=== PATIENT | female | born 1945 | race Caucasian/White ===

== ENCOUNTER 2017-04-03 12:55 | Inpatient (IN) | payer MEDICARE, BC ==
[2017-04-03] MEDS ORDERED: Albuterol/Ipratropium 3.0-0.5 MG/3 ML Neb Soln NEB ONE (13:36)
[2017-04-03] MEDS ORDERED: Sodium Chloride 0.9% 10 ML Syringe FLUSH PRN (13:37)
--- NOTE | 2017-04-03 14:58 | CR ---
Chest: Two views of the chest were obtained. Comparison: Previous chest x-ray of 01/05/16. Mild increased density is seen within the perihilar regions and within both lung bases. Findings most likely due to bronchitis as well as possible early right lower lobe pneumonia. Lungs otherwise are clear. Heart size appears within normal limits. Tortuous thoracic aorta is seen. Scoliosis is noted within the spine with minimal degenerative change also seen. Impression: 1. Possible bronchitis and early right lower lobe pneumonia. Please correlate if patient has infectious symptoms to correlate. Diagnostic code #3
--- NOTE | 2017-04-03 15:31 | EDM.PDOC ---
ED HPI GENERAL MEDICAL PROBLEM - General Chief Complaint: Respiratory Problem Stated Complaint: COPD,OXYGEN DOWN,FAST HEART RATE Time Seen by Provider: 04/03/17 13:30 Source of Information: Reports: Patient History Limitations: Reports: No Limitations - History of Present Illness INITIAL COMMENTS - FREE TEXT/NARRATIVE: The patient presents with a cough since Sunday, bodyaches, fever and chills. She has COPD and she has a pulse oximeter at home and her sats would go down in to the upper 70s. She has shortness of breath but no chest pain. She has no nausea, vomiting or abdominal pain. Onset: Gradual Duration: Day(s): (4) Severity: Moderate Improves with: Reports: None Worsens with: Reports: None Associated Symptoms: Reports: Cough, cough w sputum, Fever/Chills, Shortness of Breath, Other (Generalized body aches). Denies: Nausea/Vomiting Generalized Pain Score (Numeric/FACES): 7 - Related Data Allergies Allergy/AdvReac Type Severity Reaction Status Date / Time codeine Allergy Rash Verified 04/03/17 13:15 Penicillins Allergy Rash Verified 04/03/17 13:15 Home Meds: Home Meds Albuterol [IMW: Albuterol HFA] 1 inhalation PO Q4H PRN 12/12/15 [History] Albuterol/Ipratropium [DuoNeb 3.0-0.5 MG/3 ML] 3 ml NEB Q4HRRT PRN #100 neb [Rx] Hydrochlorothiazide 1 tab PO DAILY 12/12/15 [History] Levothyroxine 1 tab PO DAILY 12/12/15 [History] Fluticasone/Vilanterol [Breo Ellipta 200-25 Mcg INH] 1 each IH DAILY 01/05/16 [ History] Past Medical History HEENT History: Reports: Cataract, Retinal Detachment Cardiovascular History: Reports: Hypertension Respiratory History: Reports: COPD Endocrine/Metabolic History: Reports: Hypothyroidism - Past Surgical History HEENT Surgical History: Reports: Cataract Surgery GI Surgical History: Reports: Appendectomy, Cholecystectomy Social & Family History - Tobacco Use Smoking Status *Q: Former Smoker Used Tobacco, but Quit: No Month Tobacco Last Used: 7 years - Recreational Drug Use Recreational Drug Use: No - Living Situation & Occupation Living situation: Reports: Single Occupation: Employed ED ROS GENERAL - Review of Systems Review Of Systems: See Below Constitutional: Reports: Fever, Chills HEENT: Reports: No Symptoms Respiratory: Reports: Shortness of Breath, Cough Cardiovascular: Reports: No Symptoms Endocrine: Reports: No Symptoms GI/Abdominal: Reports: No Symptoms : Reports: No Symptoms Musculoskeletal: Reports: Muscle Pain ED EXAM, GENERAL - Physical Exam Exam: See Below Exam Limited By: No Limitations General Appearance: Alert, No Apparent Distress Ears: Normal External Exam Nose: Normal Inspection Head: Atraumatic, Normocephalic Neck: Normal Inspection Respiratory/Chest: No Respiratory Distress, Decreased Breath Sounds Cardiovascular: Regular Rate, Rhythm, No Edema, No Murmur GI/Abdominal: Soft, Non-Tender, No Organomegaly, No Mass Back Exam: Normal Inspection Extremities: Normal Inspection Neurological: Alert, Oriented, No Motor/Sensory Deficits Course - Vital Signs Last Recorded V/S: Last Vital Signs Temp 98.6 F 04/03/17 13:15 Pulse 81 04/03/17 14:14 Resp 18 04/03/17 13:15 BP 119/55 L 04/03/17 13:15 Pulse Ox 94 L 04/03/17 13:15 - Orders/Labs/Meds Orders: Active Orders 24 hr Category Date Time Status Cardiac Monitoring [RC] . DIRECTED Care 04/03/17 13:35 Active Oxygen Therapy [RC] PRN Care 04/03/17 13:36 Active Peripheral IV Care [RC] . DIRECTED Care 04/03/17 13:37 Active RT Aerosol Therapy [RC] ASDIRECTED Care 04/03/17 13:37 Active CULTURE BLOOD [BC] Stat Lab 04/03/17 15:33 Ordered CULTURE BLOOD [BC] Stat Lab 04/03/17 15:33 Ordered Levofloxacin/Dextrose 5%-Water [Levaquin in D5W 750 MG/ Med 04/03/17 15:33 Active 150 ML] 750 mg Premix Bag 1 bag IV ONETIME Sodium Chloride 0.9% [Saline Flush] Med 04/03/17 13:37 Active 10 ml FLUSH ASDIRECTED PRN Blood Culture x2 Reflex Set [OM.PC] Stat Oth 04/03/17 15:33 Ordered Peripheral IV Insertion Adult [OM.PC] Routine Oth 04/03/17 13:37 Ordered Medication Orders Levofloxacin/Dextrose 750 mg/ (Premix) 150 mls @ 100 mls/hr IV ONETIME ONE Stop: 04/03/17 17:02 Sodium Chloride (Saline Flush) 10 ml FLUSH ASDIRECTED PRN PRN Reason: Keep Vein Open Last Admin: 04/03/17 14:57 Dose: 10 ml Labs: Laboratory Tests 04/03/17 04/03/17 Range/Units 14:20 14:20 WBC 17.33 H (3.98-10.04) K/mm3 RBC 4.43 (3.98-5.22) M/mm3 Hgb 13.5 (11.2-15.7) gm/L Hct 41.0 (34.1-44.9) % MCV 92.6 (79.4-94.8) fl MCH 30.5 (25.6-32.2) pg MCHC 32.9 (32.2-35.5) g/dl RDW Std Deviation 49.4 H (36.4-46.3) fL Plt Count 293 (182-369) K/mm3 MPV 10.9 (9.4-12.3) fl Neut % (Auto) 82.9 H (34.0-71.1) % Lymph % (Auto) 7.6 L (19.3-51.7) % [place] % (Auto) 8.9 (4.7-12.5) % Eos % (Auto) 0.1 L (0.7-5.8) Baso % (Auto) 0.2 (0.1-1.2) % Neut # (Auto) 14.39 H (1.56-6.13) K/mm3 Lymph # (Auto) 1.31 (1.18-3.74) K/mm3 [place] # (Auto) 1.54 H (0.24-0.36) K/mm3 Eos # (Auto) 0.01 L (0.04-0.36) K/mm3 Baso # (Auto) 0.03 (0.01-0.08) K/mm3 Manual Slide Review Normal smear Sodium 134 L (136-145) mEq/L Potassium 3.7 (3.5-5.1) mEq/L Chloride 96 L (98-107) mEq/L Carbon Dioxide 29 (21-32) mEq/L Anion Gap 12.7 (5-15) BUN 14 (7-18) mg/dL Creatinine 0.9 (0.55-1.02) mg/dL Est Cr Clr Drug Dosing 48.11 mL/min Estimated GFR (MDRD) > 60 (>60) mL/min BUN/Creatinine Ratio 15.6 (14-18) Glucose 113 (80-115) mg/dL Calcium 9.0 (8.5-10.1) mg/dL Total Bilirubin 0.6 (0.2-1.0) mg/dL AST 19 (15-37) U/L ALT 20 (14-59) U/L Alkaline Phosphatase 80 (46-116) U/L Total Protein 7.2 (6.4-8.2) g/dl Albumin 3.0 L (3.4-5.0) g/dl Globulin 4.2 gm/dL Albumin/Globulin Ratio 0.7 L (1-2) Meds: Medications Generic Name Dose Route Start Last Admin Trade Name Freq PRN Reason Stop Dose Admin Levofloxacin/Dextrose 750 mg/ 150 mls @ 100 mls/hr 04/03/17 15:33 Premix IV 04/03/17 17:02 ONETIME ONE Sodium Chloride 10 ml 04/03/17 13:37 04/03/17 14:57 Saline Flush FLUSH 10 ml ASDIRECTED PRN Administration Keep Vein Open Discontinued Medications Generic Name Dose Route Start Last Admin Trade Name Freq PRN Reason Stop Dose Admin Albuterol/Ipratropium 3 ml 04/03/17 13:36 04/03/17 14:14 Duoneb 3.0-0.5 Mg/3 Ml NEB 04/03/17 13:37 3 ml ONETIME ONE Administration - Re-Assessments/Exams Free Text/Narrative Re-Assessment/Exam: 04/03/17 15:47 I ordered oxygen, duoneb, IV saline lock, CXR and labs. Her WBC was elevated at 17. Her CXR shows a right lower lobe pneumonia. I ordered blood cultures and levaquin 750mg IV. There were times where her oxygen saturations went into the high 80s. I feel she needs to be admitted. I called Dr Espino and he agreed to the admission. Departure - Departure Time of Disposition: 15:50 Disposition: Admitted As Inpatient 67 Condition: Fair Clinical Impression: Hypoxia COPD (chronic obstructive pulmonary disease) Qualifiers: COPD type: emphysema Emphysema type: unspecified Qualified Code(s): J43.9 - Emphysema, unspecified Pneumonia Qualifiers: Pneumonia type: due to unspecified organism Laterality: right Lung location: lower lobe of lung Qualified Code(s): J18.1 - Lobar pneumonia, unspecified organism - Discharge Information Referrals: Delfina May NP [Primary Care Provider] - Forms: ED Department Discharge - My Orders Last 24 Hours: My Active Orders 04/03/17 13:35 Cardiac Monitoring [RC] . DIRECTED 04/03/17 13:36 Oxygen Therapy [RC] PRN 04/03/17 13:37 Peripheral IV Care [RC] . DIRECTED RT Aerosol Therapy [RC] ASDIRECTED Sodium Chloride 0.9% [Saline Flush] 10 ml FLUSH ASDIRECTED PRN Peripheral IV Insertion Adult [OM.PC] Routine 04/03/17 15:33 CULTURE BLOOD [BC] Stat CULTURE BLOOD [BC] Stat Levofloxacin/Dextrose 5%-Water [Levaquin in D5W 750 MG/150 ML] 750 mg Premix Bag 1 bag IV ONETIME Blood Culture x2 Reflex Set [OM.PC] Stat - Assessment/Plan Last 24 Hours: My Active Orders 04/03/17 13:35 Cardiac Monitoring [RC] . DIRECTED 04/03/17 13:36 Oxygen Therapy [RC] PRN 04/03/17 13:37 Peripheral IV Care [RC] . DIRECTED RT Aerosol Therapy [RC] ASDIRECTED Sodium Chloride 0.9% [Saline Flush] 10 ml FLUSH ASDIRECTED PRN Peripheral IV Insertion Adult [OM.PC] Routine 04/03/17 15:33 CULTURE BLOOD [BC] Stat CULTURE BLOOD [BC] Stat Levofloxacin/Dextrose 5%-Water [Levaquin in D5W 750 MG/150 ML] 750 mg Premix Bag 1 bag IV ONETIME Blood Culture x2 Reflex Set [OM.PC] Stat
[2017-04-03] MEDS ORDERED: Levofloxacin/Dextrose 5%-Water 750 MG in Premix Bag 1 BAG IV ONE (15:33)
[2017-04-03] MEDS ORDERED: methylPREDNISolone Sodium Succinate 125 MG/2 ML SDV IVPUSH ONE (15:51)
[2017-04-03] MEDS ORDERED: Polyethylene Glycol 3350 Powder 17 GM Packet PO PRN (17:58)
[2017-04-03] MEDS ORDERED: Ondansetron 4 MG/2 ML SDV IV PRN (17:58)
[2017-04-03] MEDS ORDERED: Acetaminophen 325 MG Tab PO PRN (17:58)
[2017-04-03] MEDS ORDERED: Docusate Sodium 100 MG Cap PO PRN (17:58)
[2017-04-03] MEDS ORDERED: Albuterol/Ipratropium 3.0-0.5 MG/3 ML Neb Soln NEB PRN (17:58)
[2017-04-03] MEDS ORDERED: Ondansetron 4 MG Tab.DIS PO PRN (17:58)
--- NOTE | 2017-04-03 18:18 | PCM.HP ---
H&P History of Present Illness - General Date of Service: 04/03/17 Admit Problem/Dx: Admission Diagnosis/Problem Admission Diagnosis/Problem Pneumonia Source of Information: Patient History Limitations: Reports: No Limitations - History of Present Illness Initial Comments - Free Text/Narative: Patient is a 71-year-old woman with past medical history of chronic obstructive pulmonary disease, hypertension, hypothyroidism, who presented to the emergency room for evaluation of complaints of worsening cough, fever and shortness of breath of 3 days' duration. Patient states that she has had a cold since Sunday which got worse as she started coughing with productive sputum. Sputum was said to be clear and mucoid. She also complained of subjective fever and chills. She started feeling short of breath and she checked with her portable pulse oximeter and notes that that she was as low as 70%. For these problems she decided to come to the emergency room for further evaluation. At the emergency room, patient was noted to be in the low 80s but corrected with 2 L of oxygen via nasal cannula. Laboratory investigations collected at the emergency room revealed WBC of 17.3. Chest x-ray showed possible bronchitis versus early right lower lobe pneumonia. She received a dose of levofloxacin 750 mg IV as well as Solu-Medrol 125 mg 1 dose. She also received albuterol and ipratropium via nebulizer with good results. She will be admitted for IV antibiotic therapy and management of pneumonia. Generalized Pain Score (Numeric/FACES): 7 - Related Data Allergies/Adverse Reactions: Allergies Allergy/AdvReac Type Severity Reaction Status Date / Time codeine Allergy Rash Verified 04/03/17 13:15 Penicillins Allergy Rash Verified 04/03/17 13:15 Home Medications: Home Meds Albuterol [IMW: Albuterol HFA] 1 inhalation PO Q4H PRN 12/12/15 [History] Albuterol/Ipratropium [DuoNeb 3.0-0.5 MG/3 ML] 3 ml NEB Q4HRRT PRN #100 neb [Rx] Hydrochlorothiazide 1 tab PO DAILY 12/12/15 [History] Levothyroxine 1 tab PO DAILY 12/12/15 [History] Fluticasone/Vilanterol [Breo Ellipta 200-25 Mcg INH] 1 each IH DAILY 01/05/16 [ History] Past Medical History HEENT History: Reports: Cataract, Retinal Detachment Cardiovascular History: Reports: Hypertension Respiratory History: Reports: COPD Endocrine/Metabolic History: Reports: Hypothyroidism - Past Surgical History HEENT Surgical History: Reports: Cataract Surgery GI Surgical History: Reports: Appendectomy, Cholecystectomy Social & Family History - Tobacco Use Smoking Status *Q: Former Smoker Used Tobacco, but Quit: Yes Month Tobacco Last Used: 9 Second Hand Smoke Exposure: No - Caffeine Use Caffeine Use: Reports: Coffee, Soda Other Caffeine Use: 2 cups of coffee and 1 diet coke - Recreational Drug Use Recreational Drug Use: No - Living Situation & Occupation Living situation: Reports: Single Occupation: Employed H&P Review of Systems - Review of Systems: Review Of Systems: See Below General: Reports: Fever, Chills, Malaise HEENT: Reports: No Symptoms Pulmonary: Reports: Shortness of Breath, Pleuritic Chest Pain, Cough, Sputum Cardiovascular: Reports: No Symptoms Gastrointestinal: Reports: No Symptoms Genitourinary: Reports: No Symptoms Musculoskeletal: Reports: No Symptoms Skin: Reports: No Symptoms Psychiatric: Reports: No Symptoms Neurological: Reports: No Symptoms Hematologic/Lymphatic: Reports: No Symptoms Immunologic: Reports: No Symptoms Exam - Exam Exam: See Below - Vital Signs Vital Signs: Last Vital Signs Temp 97.0 F 04/03/17 17:05 Pulse 82 04/03/17 17:05 Resp 19 04/03/17 17:05 BP 125/62 04/03/17 17:05 Pulse Ox 98 04/03/17 17:05 Weight: 67.767 kg - Exam Quality Assessment: Supplemental Oxygen General: Alert, Oriented, Cooperative HEENT: PERRLA, Hearing Intact, Mucosa Moist & [place], Nares Patent, Normal Nasal Septum, Posterior Pharynx Clear, Conjunctiva Clear, EOMI, EACs Clear, TMs Clear Neck: Supple, Trachea Midline, 2 Lungs: Normal Respiratory Effort, Decreased Breath Sounds Cardiovascular: Regular Rate, Regular Rhythm GI/Abdominal Exam: Normal Bowel Sounds, Soft, Non-Tender, No Organomegaly, No Distention, No Abnormal Bruit, No Mass, Pelvis Stable (Female) Exam: Deferred Rectal (Female) Exam: Deferred Back Exam: Normal Inspection Extremities: Normal Inspection, Normal Range of Motion, Non-Tender, No Pedal Edema, Normal Capillary Refill Peripheral Pulses: 2+: Carotid (L), Carotid (R), Brachial (L), Brachial (R), Radial (L), Radial (R), Femoral (L), Femoral (R), Popliteal (L), Popliteal (R), Posterior Tibial (L), Posterior Tibial (R), Dorsalis Pedis (L), Dorsalis Pedis ( R) Skin: Warm, Dry, Intact Neurological: Cranial Nerves Intact, Reflexes Equal Bilateral Neuro Extensive - Mental Status: Alert, Oriented x3, Normal Mood/Affect, Normal Cognition Neuro Extensive - Motor, Sensory, Reflexes: CN II-XII Intact, Normal Gait, Normal Reflexes DTR: 2+: Bicep (L), Bicep (R), Tricep (L), Tricep (R), Patella (L), Patella (R) , Achilles (L), Achilles (R) Psychiatric: Alert, Normal Affect, Normal Mood - Patient Data Result Diagrams: 04/03/17 14:20 04/03/17 14:20 *Q Meaningful Use (ADM) - VTE *Q VTE Criteria *Q: - Stroke *Q Stroke Criteria *Q: - AMI *Q AMI Criteria *Q: - Problem List (1) Community acquired pneumonia SNOMED Code(s): 354208659 ICD Code: J18.9 - PNEUMONIA, UNSPECIFIED ORGANISM Status: Acute Priority : High Current Visit: Yes Qualifiers: Laterality: right Lung location: lower lobe of lung Qualified Code(s): J18.1 - Lobar pneumonia, unspecified organism (2) Acute and chronic respiratory failure with hypoxia SNOMED Code(s): 623676274 ICD Code: J96.21 - ACUTE AND CHRONIC RESPIRATORY FAILURE WITH HYPOXIA Status: Acute Priority: High Current Visit: Yes (3) COPD with acute exacerbation SNOMED Code(s): 191562192 ICD Code: J44.1 - CHRONIC OBSTRUCTIVE PULMONARY DISEASE W (ACUTE) EXACERBATION Status: Acute Priority: High Current Visit: No (4) Hypertension SNOMED Code(s): 01764220 ICD Code: I10 - ESSENTIAL (PRIMARY) HYPERTENSION Status: Chronic Priority : Low Current Visit: Yes (5) Hypothyroidism SNOMED Code(s): 85829068 ICD Code: E03.9 - HYPOTHYROIDISM, UNSPECIFIED Status: Chronic Priority: Low Current Visit: Yes Qualifiers: Hypothyroidism type: acquired Qualified Code(s): E03.9 - Hypothyroidism, unspecified Problem List Initiated/Reviewed/Updated: Yes Orders Last 24hrs: Active Orders 24 hr Category Date Time Status Patient Status [ADT] Routine ADT 04/03/17 17:07 Active Antiembolic Devices [RC] PER UNIT ROUTINE Care 04/03/17 18:02 Ordered Pneumonia Education [RC] Click to Edit Care 04/03/17 17:58 Ordered RT Incentive Spirometry [RC] ASDIRECTED Care 04/03/17 17:58 Ordered Up ad [place]ia [RC] ASDIRECTED Care 04/03/17 17:58 Ordered VTE/DVT Education [RC] PER UNIT ROUTINE Care 04/03/17 17:58 Ordered Vital Signs [RC] Q4H Care 04/03/17 17:58 Ordered 2 Gram Sodium Diet [DIET] Diet 04/03/17 Dinner Ordered BASIC METABOLIC PANEL,BMP [CHEM] AM Lab 04/04/17 05:11 Ordered CBC WITH AUTO DIFF [HEME] AM Lab 04/04/17 05:11 Ordered Acetaminophen [Tylenol] Med 04/03/17 17:58 Ordered 650 mg PO Q4H PRN Albuterol/Ipratropium [DuoNeb 3.0-0.5 MG/3 ML] Med 04/03/17 17:58 Ordered 3 ml NEB Q4H PRN Docusate Sodium [Colace] Med 04/03/17 17:58 Ordered 100 mg PO BID PRN Enoxaparin [Lovenox] Med 04/04/17 09:00 Ordered 40 mg SUBCUT DAILY Fluticasone/Vilanterol Med 04/04/17 09:00 Ordered 1 each IH DAILY Hydrochlorothiazide Med 04/04/17 09:00 Ordered 1 tab PO DAILY Levofloxacin/Dextrose 5%-Water [Levaquin in D5W 750 MG/ Med 04/04/17 15:30 Ordered 150 ML] 750 mg Premix Bag 1 bag IV Q24H Levothyroxine Med 04/04/17 09:00 Ordered 1 tab PO DAILY Ondansetron [Zofran ODT] Med 04/03/17 17:58 Ordered 4 mg PO Q6H PRN Ondansetron [Zofran] Med 04/03/17 17:58 Ordered 4 mg IV Q6H PRN Pharmacy to Dose [Pharmacy to Dose - InFluenza Vaccine] Med 04/04/17 11:00 Once 1 each IM ONETIME ONE Polyethylene Glycol 3350 [MiraLAX] Med 04/03/17 17:58 Ordered 17 gm PO DAILY PRN Temazepam [Restoril] Med 04/03/17 17:58 Ordered 7.5 mg PO BEDTIME PRN methylPREDNISolone Sod Succ [Solu-MEDROL] Med 04/04/17 06:00 Ordered 40 mg IVPUSH Q12H Antiembolic Hose [OM.PC] Per Unit Routine Oth 04/03/17 17:59 Ordered Blood Culture x2 Reflex Set [OM.PC] Stat Oth 04/03/17 17:58 Ordered Resuscitation Status Routine Resus Stat 04/03/17 17:58 Ordered Medication Orders Acetaminophen (Tylenol) 650 mg PO Q4H PRN PRN Reason: Pain (Mild 1-3)/fever Albuterol/Ipratropium (Duoneb 3.0-0.5 Mg/3 Ml) 3 ml NEB Q4H PRN PRN Reason: Shortness Of Breath/wheezing Docusate Sodium (Colace) 100 mg PO BID PRN PRN Reason: Constipation Enoxaparin Sodium (Lovenox) 40 mg SUBCUT DAILY [facility] Hydrochlorothiazide (Hydrochlorothiazide) mg PO DAILY [facility] Levofloxacin/Dextrose 750 mg/ (Premix) 150 mls @ 100 mls/hr IV Q24H [facility] Influenza Virus Vaccine (Pharmacy To Dose - Influenza Vaccine) 1 each IM ONETIME ONE Stop: 04/04/17 11:01 Levothyroxine Sodium (Levothyroxine) mcg PO DAILY [facility] Methylprednisolone Sodium Succinate (Solu-Medrol) 40 mg IVPUSH Q12H [facility] Non-Formulary Medication (Fluticasone/Vilanterol) 1 each IH DAILY [facility] Ondansetron HCl (Zofran Odt) 4 mg PO Q6H PRN PRN Reason: nausea, able to take PO Ondansetron HCl (Zofran) 4 mg IV Q6H PRN PRN Reason: Nausea/Vomiting Polyethylene Glycol (Miralax) 17 gm PO DAILY PRN PRN Reason: Constipation Sodium Chloride (Saline Flush) 10 ml FLUSH ASDIRECTED PRN PRN Reason: Keep Vein Open Last Admin: 04/03/17 14:57 Dose: 10 ml Temazepam (Restoril) 7.5 mg PO BEDTIME PRN PRN Reason: Sleep Assessment/Plan Comment:: Assessment: 1. Community-acquired pneumonia involving the right lower lobe of the lung. 2. Acute on chronic respiratory failure with hypoxia requiring oxygen supplementation therapy. 3. Acute exacerbation of chronic obstructive pulmonary disease. 4. Essential hypertension. 5. Chronic acquired hypothyroidism. Plan: 1. Admit to hospitalist service for IV antibiotic therapy as observation status. 2. IV antibiotic therapy with IV levofloxacin 750 mg every 24 hours. 3. IV Solu Medrol 40 mg twice daily. 4. Oxygen supplementation therapy to maintain oxygen saturation above 90%. 5. Bronchodilator therapy with albuterol and ipratropium via nebulizer every 4 hours as needed for shortness of breath and wheezing. 6. Continue all home medications as directed. 7. DVT prophylaxis with Lovenox. 8. CODE STATUS: Full code.
[2017-04-04] MEDS: Levothyroxine 125 MCG Tab **OWN MED PO SCH (06:13)
[2017-04-04] MEDS: methylPREDNISolone Sodium Succinate 40 MG/1 ML SDV IVPUSH SCH ×2 (06:13→20:39)
[2017-04-04] MEDS ORDERED: Magnesium Hydroxide 400 MG/5 ML Susp 30 ML Cup PO PRN (08:34)
[2017-04-04] MEDS: Enoxaparin 40 MG/0.4 ML Syringe SUBCUT SCH (08:56)
[2017-04-04] MEDS: guaiFENesin 600 MG Tab.ER PO SCH ×2 (08:56→20:39)
[2017-04-04] MEDS ORDERED: Non-Formulary Medication 1 Each (Fluticasone/Vilanterol 1 EACH) IH SCH (09:00)
[2017-04-04] MEDS ORDERED: FLU Vacc TS 2017-18 (65yr UP)/PF 180 MCG/0.5 ML Syringe IM ONE (11:00)
--- NOTE | 2017-04-04 11:01 | PCM.PN ---
- General Info Date of Service: 04/04/17 Admission Dx/Problem (Free Text): Admission Diagnosis/Problem Admission Diagnosis/Problem Pneumonia Sandra is seen this morning, resting comfortably. Supplemental oxygen continues to be weaned. Feeling better already. Afebrile overnight. VSS. Functional Status: Reports: Pain Controlled, Tolerating Diet, Ambulating, Urinating, Incentive Spirometry. Denies: New Symptoms - Review of Systems General: Reports: No Symptoms, Appetite (improved). Denies: Fever HEENT: Reports: No Symptoms Pulmonary: Reports: Shortness of Breath (improved), Cough, Sputum Cardiovascular: Reports: No Symptoms Gastrointestinal: Reports: No Symptoms Genitourinary: Reports: No Symptoms - Patient Data Vitals - Most Recent: Last Vital Signs Temp 98.6 F 04/04/17 08:24 Pulse 75 04/04/17 08:24 Resp 19 04/04/17 08:24 BP 127/110 H 04/04/17 08:24 Pulse Ox 92 L 04/04/17 09:00 Weight - Most Recent: 147 lb 11.2 oz I&O - Last 24 Hours: Intake & Output 04/03/17 04/04/17 04/04/17 22:59 06:59 14:59 Intake Total 240 1300 Balance 240 1300 Lab Results Last 24 Hours: Laboratory Results - last 24 hr 04/04/17 04/04/17 04/04/17 Range/Units 05:00 05:00 05:00 WBC 15.56 H (3.98-10.04) K/mm3 RBC 4.61 (3.98-5.22) M/mm3 Hgb 14.1 (11.2-15.7) gm/L Hct 42.7 (34.1-44.9) % MCV 92.6 (79.4-94.8) fl MCH 30.6 (25.6-32.2) pg MCHC 33.0 (32.2-35.5) g/dl RDW Std Deviation 48.4 H (36.4-46.3) fL Plt Count 300 (182-369) K/mm3 MPV 10.8 (9.4-12.3) fl Neut % (Auto) 92.6 H (34.0-71.1) % Lymph % (Auto) 4.0 L (19.3-51.7) % [place] % (Auto) 3.0 L (4.7-12.5) % Eos % (Auto) 0 L (0.7-5.8) Baso % (Auto) 0.1 (0.1-1.2) % Neut # (Auto) 14.42 H (1.56-6.13) K/mm3 Lymph # (Auto) 0.62 L (1.18-3.74) K/mm3 [place] # (Auto) 0.46 H (0.24-0.36) K/mm3 Eos # (Auto) 0.00 L (0.04-0.36) K/mm3 Baso # (Auto) 0.02 (0.01-0.08) K/mm3 Manual Slide Review Abnormal smear Sodium 137 (136-145) mEq/L Potassium 3.7 (3.5-5.1) mEq/L Chloride 100 (98-107) mEq/L Carbon Dioxide 27 (21-32) mEq/L Anion Gap 13.7 (5-15) BUN 11 (7-18) mg/dL Creatinine 0.5 L (0.55-1.02) mg/dL Est Cr Clr Drug Dosing 86.60 mL/min Estimated GFR (MDRD) > 60 (>60) mL/min BUN/Creatinine Ratio 22.0 H (14-18) Glucose 123 H (80-115) mg/dL Calcium 9.3 (8.5-10.1) mg/dL C-Reactive Protein 15.4 H* (<1.0) mg/dL Mycoplasma pneumon IgM Positive H (NEGATIVE) Carlito Results Last 24 Hours: Microbiology 04/03/17 21:58 Influenza Type A Antigen Screen - Final Nasal, Unspecified NEGATIVE INFLUENZA A VIRUS AG Influenza Type B Antigen Screen - Final NEGATIVE INFLUENZA B VIRUS AG Med Orders - Current: Current Medications Acetaminophen (Tylenol) 650 mg PO Q4H PRN PRN Reason: Pain (Mild 1-3)/fever Albuterol/Ipratropium (Duoneb 3.0-0.5 Mg/3 Ml) 3 ml NEB Q4H PRN PRN Reason: Shortness Of Breath/wheezing Docusate Sodium (Colace) 100 mg PO BID PRN PRN Reason: Constipation Enoxaparin Sodium (Lovenox) 40 mg SUBCUT DAILY [facility] Last Admin: 04/04/17 08:56 Dose: 40 mg Guaifenesin (Mucinex) 1,200 mg PO BID [facility] Last Admin: 04/04/17 08:56 Dose: 1,200 mg Hydrochlorothiazide (Hydrochlorothiazide) mg PO DAILY [facility] Levofloxacin/Dextrose 750 mg/ (Premix) 150 mls @ 100 mls/hr IV Q24H [facility] Azithromycin 500 mg/ Sodium (Chloride) 250 mls @ 250 mls/hr IV Q24H [facility] Influenza Virus Vaccine (Fluzone High-Dose ) 180 mcg IM ONETIME ONE Stop: 04/04/17 11:01 Levothyroxine Sodium (Levothyroxine) 125 mcg PO ACBRK [facility] Last Admin: 04/04/17 06:13 Dose: 125 mcg Magnesium Hydroxide (Milk Of Magnesia) 30 ml PO BID PRN PRN Reason: Constipation Methylprednisolone Sodium Succinate (Solu-Medrol) 40 mg IVPUSH Q12H [facility] Last Admin: 04/04/17 06:13 Dose: 40 mg Non-Formulary Medication (Fluticasone/Vilanterol) 1 each IH DAILY [facility] Non-Formulary Medication (Fluticasone Furoate [Arnuity Ellipta]) 1 puff PO DAILY [facility] Ondansetron HCl (Zofran Odt) 4 mg PO Q6H PRN PRN Reason: nausea, able to take PO Ondansetron HCl (Zofran) 4 mg IV Q6H PRN PRN Reason: Nausea/Vomiting Polyethylene Glycol (Miralax) 17 gm PO DAILY PRN PRN Reason: Constipation Saccharomyces Boulardii (Florastor) 250 mg PO BID [facility] Sodium Chloride (Saline Flush) 10 ml FLUSH ASDIRECTED PRN PRN Reason: Keep Vein Open Last Admin: 04/03/17 14:57 Dose: 10 ml Temazepam (Restoril) 7.5 mg PO BEDTIME PRN PRN Reason: Sleep Discontinued Medications Albuterol/Ipratropium (Duoneb 3.0-0.5 Mg/3 Ml) 3 ml NEB ONETIME ONE Stop: 04/03/17 13:37 Last Admin: 04/03/17 14:14 Dose: 3 ml Levofloxacin/Dextrose 750 mg/ (Premix) 150 mls @ 100 mls/hr IV ONETIME ONE Stop: 04/03/17 17:02 Last Admin: 04/03/17 16:22 Dose: 100 mls/hr Methylprednisolone Sodium Succinate (Solu-Medrol) 125 mg IVPUSH ONETIME ONE Stop: 04/03/17 15:52 Last Admin: 04/03/17 16:21 Dose: 125 mg - Exam Quality Assessment: Supplemental Oxygen, DVT Prophylaxis General: Alert, Oriented, Cooperative, No Acute Distress HEENT: Pupils Equal, EOMI, Mucous Membr. Moist/[place] Neck: Supple Lungs: Normal Respiratory Effort, Decreased Breath Sounds (bases bilat), Wheezing (expiratory) Cardiovascular: Regular Rate, Regular Rhythm GI/Abdominal Exam: Normal Bowel Sounds, Soft, Non-Tender (Female) Exam: Deferred Extremities: Normal Inspection, No Pedal Edema Peripheral Pulses: 1+: Dorsalis Pedis (L), Dorsalis Pedis (R) Skin: Warm, Dry Neurological: No New Focal Deficit Psy/Mental Status: Alert, Normal Affect, Normal Mood - Problem List & Annotations (1) Mycoplasma pneumonia SNOMED Code(s): 00194114 Code(s): J15.7 - PNEUMONIA DUE TO MYCOPLASMA PNEUMONIAE Status: Acute Priority: High Current Visit: Yes (2) Community acquired pneumonia SNOMED Code(s): 785612417 Code(s): J18.9 - PNEUMONIA, UNSPECIFIED ORGANISM Status: Acute Priority: High Current Visit: Yes Qualifiers: Laterality: right Lung location: lower lobe of lung Qualified Code(s): J18.1 - Lobar pneumonia, unspecified organism (3) COPD (chronic obstructive pulmonary disease) SNOMED Code(s): 33636758 Code(s): J44.9 - CHRONIC OBSTRUCTIVE PULMONARY DISEASE, UNSPECIFIED Status : Acute Priority: High Current Visit: Yes Qualifiers: COPD type: emphysema Emphysema type: unspecified Qualified Code(s): J43.9 - Emphysema, unspecified (4) Hypoxia SNOMED Code(s): 388606183 Code(s): R09.02 - HYPOXEMIA Status: Acute Priority: High Current Visit : Yes (5) Hypertension SNOMED Code(s): 59520665 Code(s): I10 - ESSENTIAL (PRIMARY) HYPERTENSION Status: Chronic Priority : Medium Current Visit: Yes Qualifiers: Hypertension type: essential hypertension Qualified Code(s): I10 - Essential (primary) hypertension (6) Hypothyroidism SNOMED Code(s): 47580024 Code(s): E03.9 - HYPOTHYROIDISM, UNSPECIFIED Status: Chronic Priority: Low Current Visit: Yes Qualifiers: Hypothyroidism type: acquired Qualified Code(s): E03.9 - Hypothyroidism, unspecified - Problem List Review Problem List Initiated/Reviewed/Updated: Yes - My Orders Last 24 Hours: My Active Orders 04/04/17 06:35 RT Flutter Valve Therapy [RT Acapella] [RESPCARE] Q2HWA 04/04/17 06:36 CULTURE SPUTUM + SMEAR [RM] Routine 04/04/17 06:37 STREP PNEUMONIAE ANTIGEN [MREF] Routine 04/04/17 09:00 Fluticasone Furoate [Arnuity Ellipta] 1 puff PO DAILY guaiFENesin [Mucinex] 1,200 mg PO BID 04/04/17 09:15 Azithromycin [Zithromax] 500 mg Sodium Chloride 0.9% [Normal Saline] 250 ml IV Q24H Saccharomyces Boulardii [Florastor] 250 mg PO BID 04/05/17 05:11 Chest 2V [CR] AM BASIC METABOLIC PANEL,BMP [CHEM] AM C-REACTIVE PROTEIN [CHEM] AM CBC WITH AUTO DIFF [HEME] AM - Plan Plan:: I/P: Community Acquired Pneumonia/Mycoplasma Pneumonia- -Levaquin IV -Mycoplasma positive this morning; add zithromax IV today -Continue with IVF for hydration -RT- aggressive pulmonary toilet; Neb tx/IS/FV -Mucinex BID -IV solumedrol -Supplemental oxygen to keep sats >90% -Influenza negative -Strep Pneumo Pending Hypoxia- 2/2 above Treat as above Chronic conditions: Cont home meds HTN Hypothyroid Other: Admit to inpatient for mycoplasma pneumonia diagnosis GI/DVT prophylax PT/OT CM/SW for DC planning assistance- plan 48 hours of IV abx. Patient is Full Code status
[2017-04-04] MEDS: Famotidine 20 MG Tab PO SCH ×2 (13:28→20:40)
[2017-04-04] MEDS: Saccharomyces Boulardii (Probiotic) 250 MG Cap PO SCH ×2 (13:28→20:38)
[2017-04-04] MEDS: Hydrochlorothiazide/Triamterene 25-37.5 MG Cap PO SCH (13:29)
[2017-04-04] MEDS: Azithromycin 500 MG in Sodium Chloride 0.9% 250 ML IV SCH (13:29)
[2017-04-04] MEDS: Levofloxacin/Dextrose 5%-Water 750 MG in Premix Bag 1 BAG IV SCH (16:35)
[2017-04-04] MEDS: Temazepam 7.5 MG Cap PO PRN (22:38)
[2017-04-05] MEDS: Mometasone Furoate HFA 100mcg/Puff 13 GM Inhaler INH SCH ×3 (04:45→20:01)
[2017-04-05] MEDS: Levothyroxine 125 MCG Tab **OWN MED PO SCH (06:10)
[2017-04-05] MEDS: methylPREDNISolone Sodium Succinate 40 MG/1 ML SDV IVPUSH SCH ×2 (06:11→17:13)
[2017-04-05] MEDS ORDERED: Levothyroxine 150 MCG Tab PO SCH (07:15)
--- NOTE | 2017-04-05 09:02 | CR ---
Chest: Two views of the chest were obtained. Comparison: Previous chest x-ray of 04/03/17. Mild increased lung markings are seen within the right lung base. Findings are stable from prior study. No new areas of abnormal parenchymal density are seen. Heart size is normal. Mild tortuosity of the thoracic aorta is seen. Scoliosis is noted. Impression: 1. Mild increased lung markings within the right lung base which remain stable from previous chest x-ray. No new abnormality is identified. Diagnostic code #3
[2017-04-05] MEDS: Enoxaparin 40 MG/0.4 ML Syringe SUBCUT SCH (09:09)
[2017-04-05] MEDS: Hydrochlorothiazide/Triamterene 25-37.5 MG Cap PO SCH (09:10)
[2017-04-05] MEDS: Famotidine 20 MG Tab PO SCH ×2 (09:10→20:17)
[2017-04-05] MEDS: guaiFENesin 600 MG Tab.ER PO SCH ×2 (09:10→20:19)
[2017-04-05] MEDS: Saccharomyces Boulardii (Probiotic) 250 MG Cap PO SCH ×2 (09:10→20:20)
[2017-04-05] MEDS: Azithromycin 500 MG in Sodium Chloride 0.9% 250 ML IV SCH (11:14)
--- NOTE | 2017-04-05 14:03 | PCM.PN ---
- General Info Date of Service: 04/05/17 Admission Dx/Problem (Free Text): Admission Diagnosis/Problem Admission Diagnosis/Problem Pneumonia Sandra is seen this morning, resting comfortably. Supplemental oxygen continues to be weaned. Feeling better already. Afebrile overnight. VSS. Functional Status: Reports: Pain Controlled, Tolerating Diet, Ambulating, Urinating, Incentive Spirometry. Denies: New Symptoms - Review of Systems General: Reports: Weakness (improving). Denies: Fever HEENT: Reports: No Symptoms Pulmonary: Reports: Shortness of Breath (improving), Cough Cardiovascular: Reports: Dyspnea on Exertion (improving). Denies: Chest Pain, Palpitations Gastrointestinal: Reports: No Symptoms Genitourinary: Reports: No Symptoms Musculoskeletal: Reports: No Symptoms, Other (cast to right arm) Skin: Reports: No Symptoms Neurological: Reports: No Symptoms Psychiatric: Reports: No Symptoms - Patient Data Vitals - Most Recent: Last Vital Signs Temp 98.4 F 04/05/17 11:34 Pulse 76 04/05/17 11:59 Resp 19 04/05/17 11:34 BP 123/62 04/05/17 11:34 Pulse Ox 94 L 04/05/17 11:59 Weight - Most Recent: 148 lb 3.2 oz I&O - Last 24 Hours: Intake & Output 04/04/17 04/05/17 04/05/17 22:59 06:59 14:59 Intake Total 490 575 240 Output Total 800 Balance 490 -225 240 Lab Results Last 24 Hours: Laboratory Results - last 24 hr 04/05/17 04/05/17 Range/Units 06:31 06:31 WBC 19.95 H (3.98-10.04) K/mm3 RBC 4.54 (3.98-5.22) M/mm3 Hgb 13.9 (11.2-15.7) gm/L Hct 42.2 (34.1-44.9) % MCV 93.0 (79.4-94.8) fl MCH 30.6 (25.6-32.2) pg MCHC 32.9 (32.2-35.5) g/dl RDW Std Deviation 47.8 H (36.4-46.3) fL Plt Count 395 H (182-369) K/mm3 MPV 11.0 (9.4-12.3) fl Neut % (Auto) 89.8 H (34.0-71.1) % Lymph % (Auto) 4.7 L (19.3-51.7) % [place] % (Auto) 4.9 (4.7-12.5) % Eos % (Auto) 0 L (0.7-5.8) Baso % (Auto) 0.1 (0.1-1.2) % Neut # (Auto) 17.95 H (1.56-6.13) K/mm3 Lymph # (Auto) 0.93 L (1.18-3.74) K/mm3 [place] # (Auto) 0.97 H (0.24-0.36) K/mm3 Eos # (Auto) 0.00 L (0.04-0.36) K/mm3 Baso # (Auto) 0.01 (0.01-0.08) K/mm3 Manual Slide Review Abnormal smear Sodium 139 (136-145) mEq/L Potassium 4.2 (3.5-5.1) mEq/L Chloride 101 (98-107) mEq/L Carbon Dioxide 29 (21-32) mEq/L Anion Gap 13.2 (5-15) BUN 16 (7-18) mg/dL Creatinine 0.6 (0.55-1.02) mg/dL Est Cr Clr Drug Dosing 72.17 mL/min Estimated GFR (MDRD) > 60 (>60) mL/min BUN/Creatinine Ratio 26.7 H (14-18) Glucose 130 H (80-115) mg/dL Calcium 9.2 (8.5-10.1) mg/dL C-Reactive Protein 6.4 H* (<1.0) mg/dL Carlito Results Last 24 Hours: Microbiology 04/04/17 20:35 Gram Stain - Final Sputum - Expectorated Sputum Culture - Preliminary Med Orders - Current: Current Medications Acetaminophen (Tylenol) 650 mg PO Q4H PRN PRN Reason: Pain (Mild 1-3)/fever Last Admin: 04/04/17 20:39 Dose: 650 mg Albuterol/Ipratropium (Duoneb 3.0-0.5 Mg/3 Ml) 3 ml NEB Q4H PRN PRN Reason: Shortness Of Breath/wheezing Docusate Sodium (Colace) 100 mg PO BID PRN PRN Reason: Constipation Last Admin: 04/05/17 11:16 Dose: 100 mg Enoxaparin Sodium (Lovenox) 40 mg SUBCUT DAILY [facility] Last Admin: 04/05/17 09:09 Dose: 40 mg Famotidine (Pepcid) 20 mg PO BID [facility] Last Admin: 04/05/17 09:10 Dose: 20 mg Guaifenesin (Mucinex) 1,200 mg PO BID [facility] Last Admin: 04/05/17 09:10 Dose: 1,200 mg Levofloxacin/Dextrose 750 mg/ (Premix) 150 mls @ 100 mls/hr IV Q24H [facility] Last Admin: 04/04/17 16:35 Dose: 100 mls/hr Azithromycin 500 mg/ Sodium (Chloride) 250 mls @ 250 mls/hr IV Q24H [facility] Last Admin: 04/05/17 11:14 Dose: 250 mls/hr Levothyroxine Sodium (Levothyroxine) 150 mcg PO ACBREAKFAST [facility] Magnesium Hydroxide (Milk Of Magnesia) 30 ml PO BID PRN PRN Reason: Constipation Methylprednisolone Sodium Succinate (Solu-Medrol) 40 mg IVPUSH Q12H [facility] Last Admin: 04/05/17 06:11 Dose: 40 mg Mometasone Furoate (Asmanex Hfa 100mcg) 0 gm INH BID [facility] Last Admin: 04/05/17 10:13 Dose: 1 puff Ondansetron HCl (Zofran Odt) 4 mg PO Q6H PRN PRN Reason: nausea, able to take PO Ondansetron HCl (Zofran) 4 mg IV Q6H PRN PRN Reason: Nausea/Vomiting Polyethylene Glycol (Miralax) 17 gm PO DAILY PRN PRN Reason: Constipation Saccharomyces Boulardii (Florastor) 250 mg PO BID [facility] Last Admin: 04/05/17 09:10 Dose: 250 mg Sodium Chloride (Saline Flush) 10 ml FLUSH ASDIRECTED PRN PRN Reason: Keep Vein Open Last Admin: 04/03/17 14:57 Dose: 10 ml Temazepam (Restoril) 7.5 mg PO BEDTIME PRN PRN Reason: Sleep Last Admin: 04/04/17 22:38 Dose: 7.5 mg Triamterene/HCTZ (Dyazide 25-37.5 Mg) 1 each PO DAILY [facility] Last Admin: 04/05/17 09:10 Dose: 1 each Discontinued Medications Albuterol/Ipratropium (Duoneb 3.0-0.5 Mg/3 Ml) 3 ml NEB ONETIME ONE Stop: 04/03/17 13:37 Last Admin: 04/03/17 14:14 Dose: 3 ml Levofloxacin/Dextrose 750 mg/ (Premix) 150 mls @ 100 mls/hr IV ONETIME ONE Stop: 04/03/17 17:02 Last Admin: 04/03/17 16:22 Dose: 100 mls/hr Influenza Virus Vaccine (Fluzone High-Dose 2016-) 180 mcg IM ONETIME ONE Stop: 04/04/17 11:01 Levothyroxine Sodium (Levothyroxine) 125 mcg PO ACBRK [facility] Last Admin: 04/05/17 06:10 Dose: 125 mcg Levothyroxine Sodium (Levothyroxine) 150 mcg PO ACBREAKFAST [facility] Last Admin: 04/05/17 07:57 Dose: Not Given Methylprednisolone Sodium Succinate (Solu-Medrol) 125 mg IVPUSH ONETIME ONE Stop: 04/03/17 15:52 Last Admin: 04/03/17 16:21 Dose: 125 mg Non-Formulary Medication (Fluticasone/Vilanterol) 1 each IH DAILY [place] - Exam Quality Assessment: Supplemental Oxygen, DVT Prophylaxis General: Alert, Oriented, Cooperative, No Acute Distress HEENT: Pupils Equal, EOMI, Mucous Membr. Moist/[place] Neck: Supple Lungs: Normal Respiratory Effort, Decreased Breath Sounds (throughout), Wheezing (exp, throughout) Cardiovascular: Regular Rate, Regular Rhythm GI/Abdominal Exam: Normal Bowel Sounds, Soft, Non-Tender (Female) Exam: Deferred Extremities: Normal Inspection, Other (short arm cast in good repair to right arm- CMS + ) Peripheral Pulses: 2+: Dorsalis Pedis (L), Dorsalis Pedis (R) Neurological: No New Focal Deficit Psy/Mental Status: Alert, Normal Affect, Normal Mood - Problem List & Annotations (1) Mycoplasma pneumonia SNOMED Code(s): 31666380 Code(s): J15.7 - PNEUMONIA DUE TO MYCOPLASMA PNEUMONIAE Status: Acute Priority: High Current Visit: Yes (2) Community acquired pneumonia SNOMED Code(s): 894192781 Code(s): J18.9 - PNEUMONIA, UNSPECIFIED ORGANISM Status: Acute Priority: High Current Visit: Yes Qualifiers: Laterality: right Lung location: lower lobe of lung Qualified Code(s): J18.1 - Lobar pneumonia, unspecified organism (3) COPD (chronic obstructive pulmonary disease) SNOMED Code(s): 88869802 Code(s): J44.9 - CHRONIC OBSTRUCTIVE PULMONARY DISEASE, UNSPECIFIED Status : Acute Priority: High Current Visit: Yes Qualifiers: COPD type: emphysema Emphysema type: unspecified Qualified Code(s): J43.9 - Emphysema, unspecified (4) Hypoxia SNOMED Code(s): 970474904 Code(s): R09.02 - HYPOXEMIA Status: Acute Priority: High Current Visit : Yes (5) Hypertension SNOMED Code(s): 85298293 Code(s): I10 - ESSENTIAL (PRIMARY) HYPERTENSION Status: Chronic Priority : Medium Current Visit: Yes Qualifiers: Hypertension type: essential hypertension Qualified Code(s): I10 - Essential (primary) hypertension (6) Hypothyroidism SNOMED Code(s): 49381308 Code(s): E03.9 - HYPOTHYROIDISM, UNSPECIFIED Status: Chronic Priority: Low Current Visit: Yes Qualifiers: Hypothyroidism type: acquired Qualified Code(s): E03.9 - Hypothyroidism, unspecified - Problem List Review Problem List Initiated/Reviewed/Updated: Yes - My Orders Last 24 Hours: My Active Orders 04/06/17 06:00 Levothyroxine 150 mcg PO ACBREAKFAST - Plan Plan:: I/P: Community Acquired Pneumonia/Mycoplasma Pneumonia- -Levaquin IV -Mycoplasma positive; add zithromax -RT- aggressive pulmonary toilet; Neb tx/IS/FV -Mucinex BID -IV solumedrol -Supplemental oxygen to keep sats >90% -Influenza negative -Strep Pneumo Pending Hypoxia- 2/2 above Treat as above Chronic conditions: Cont home meds HTN- stable Hypothyroid-TSH elevated at 6.6, increase levothyroxine dose, see orders Other: Admit to inpatient for mycoplasma pneumonia diagnosis GI/DVT prophylax PT/OT CM/SW for DC planning assistance- plan 48 hours of IV abx. Patient is Full Code status 35 minutes spent with patient this morning.
[2017-04-05] MEDS: Levofloxacin/Dextrose 5%-Water 750 MG in Premix Bag 1 BAG IV SCH (17:13)
[2017-04-05] MEDS ORDERED: Benzocaine/Cetylpyridinium/Menthol Lozenge MUCMEM PRN (17:24)
[2017-04-05] MEDS: Temazepam 7.5 MG Cap PO PRN (20:20)
[2017-04-06] MEDS ORDERED: Levothyroxine 150 MCG Tab PO SCH (06:00)
[2017-04-06] MEDS: methylPREDNISolone Sodium Succinate 40 MG/1 ML SDV IVPUSH SCH (06:34)
[2017-04-06] MEDS: Mometasone Furoate HFA 100mcg/Puff 13 GM Inhaler INH SCH (08:16)
[2017-04-06 08:23] VITALS: BP 104/62
[2017-04-06] MEDS: Enoxaparin 40 MG/0.4 ML Syringe SUBCUT SCH (08:24)
[2017-04-06] MEDS: Famotidine 20 MG Tab PO SCH (08:24)
[2017-04-06] MEDS: Saccharomyces Boulardii (Probiotic) 250 MG Cap PO SCH (08:24)
[2017-04-06] MEDS: guaiFENesin 600 MG Tab.ER PO SCH (08:24)
[2017-04-06] MEDS: Hydrochlorothiazide/Triamterene 25-37.5 MG Cap PO SCH (08:24)
--- NOTE | 2017-04-06 08:34 | PCM.DCSUM1 ---
<Danielle Oliver - Last Filed: 04/06/17 08:38> Discharge Summary - Hospital Course Free Text/Narrative:: Patient is a 71-year-old woman with past medical history of chronic obstructive pulmonary disease, hypertension, hypothyroidism, who presented to the emergency room for evaluation of complaints of worsening cough, fever and shortness of breath of 3 days' duration. Patient states that she has had a cold since Sunday which got worse as she started coughing with productive sputum. Sputum was said to be clear and mucoid. She also complained of subjective fever and chills. She started feeling short of breath and she checked with her portable pulse oximeter and notes that that she was as low as 70%. For these problems she decided to come to the emergency room for further evaluation. At the emergency room, patient was noted to be in the low 80s but corrected with 2 L of oxygen via nasal cannula. Laboratory investigations collected at the emergency room revealed WBC of 17.3. Chest x-ray showed possible bronchitis versus early right lower lobe pneumonia. She received a dose of levofloxacin 750 mg IV as well as Solu-Medrol 125 mg 1 dose. She also received albuterol and ipratropium via nebulizer with good results. She will be admitted for IV antibiotic therapy and management of pneumonia. Patient did very well during course of hospital stay. She was treated with IV levaquin and zithromax. IV solumedrol 40mg Q12 hours and aggressive pulmonary toilet, nebs, IS, mucinex. Flu was negative. Mycoplasma pneumonia was positive. Repeat CXR was unchanged or stable. She was weaned of supplmental oxygen, maintaining oxygen saturations on room air and doing well. Ambulating, eating, moving bowels and urinating without problems. She had prior right wrist fracture and is seeing Orthopedics for this, cast is in good repair with + CMS during her stay. She will f/up with Ortho as instructed. DC on levaquin and zithromax, medrol dose pack. Fup with PCP early next week. - Discharge Data Discharge Date: 04/06/17 (admit date 04/04/17) Discharge Disposition: Home, Self-Care 01 Condition: Good - Discharge Diagnosis/Problem(s) (1) Mycoplasma pneumonia SNOMED Code(s): 95972326 ICD Code: J15.7 - PNEUMONIA DUE TO MYCOPLASMA PNEUMONIAE Status: Acute Priority: High QualifierTitle: Laterality: right Lung location: lower lobe of lung Qualified Code(s): J15.7 - Pneumonia due to Mycoplasma pneumoniae (2) Community acquired pneumonia SNOMED Code(s): 900206239 ICD Code: J18.9 - PNEUMONIA, UNSPECIFIED ORGANISM Status: Acute Priority : High QualifierTitle: Laterality: right Lung location: lower lobe of lung Qualified Code(s): J18.1 - Lobar pneumonia, unspecified organism (3) COPD (chronic obstructive pulmonary disease) SNOMED Code(s): 36913726 ICD Code: J44.9 - CHRONIC OBSTRUCTIVE PULMONARY DISEASE, UNSPECIFIED Status : Acute Priority: High QualifierTitle: COPD type: emphysema Emphysema type: unspecified Qualified Code(s): J43.9 - Emphysema, unspecified (4) Hypoxia SNOMED Code(s): 063160176 ICD Code: R09.02 - HYPOXEMIA Status: Resolved Priority: High (5) Hypertension SNOMED Code(s): 11850631 ICD Code: I10 - ESSENTIAL (PRIMARY) HYPERTENSION Status: Chronic Priority : Medium QualifierTitle: Hypertension type: essential hypertension Qualified Code( s): I10 - Essential (primary) hypertension (6) Hypothyroidism SNOMED Code(s): 43247555 ICD Code: E03.9 - HYPOTHYROIDISM, UNSPECIFIED Status: Chronic Priority: Low QualifierTitle: Hypothyroidism type: acquired Qualified Code(s): E03.9 - Hypothyroidism, unspecified - Patient Summary/Data Operative Procedure(s) Performed: None Complications: None Consults: None Labs Pending at D/C: None Recommended Follow-up Testing/Procedures: Follow up with PCP, Delfina May in [place] next week; recommend repeat chest xray in 2 weeks Recommend recheck TSH- thyroid lab in 2-3 months as level was high and dose adjusted while in hospital Follow up with Orthopedics for wrist fracture as instructed Planned Operative Procedure(s) after DC: None Hospital Course: As above - Patient Instructions Diet: Usual Diet as Tolerated Activity: As Tolerated Showering/Bathing: May Shower Notify Provider of: Fever, Increased Pain (worsening of cough or shortness of breath) - Discharge Plan Prescriptions/Med Rec: Azithromycin [Zithromax] 250 mg PO DAILY #5 tablet Docusate Sodium [Colace] 100 mg PO BID PRN #40 cap PRN Reason: Constipation guaiFENesin [Mucinex] 1,200 mg PO BID #40 tab.er Levofloxacin [Levaquin] 750 mg PO DAILY #7 tablet Levothyroxine 150 mcg PO ACBREAKFAST #30 tablet methylPREDNISolone [Medrol] 4 mg PO DAILY #1 tab.ds.pk Home Medications: Home Meds Albuterol [IMW: Albuterol HFA] 1 inhalation PO Q4H PRN 12/12/15 [History] Albuterol/Ipratropium [DuoNeb 3.0-0.5 MG/3 ML] 3 ml NEB Q4HRRT PRN #100 neb [Rx] Fluticasone Furoate [Arnuity Ellipta] 1 puff PO DAILY 04/03/17 [History] Triamterene/Hydrochlorothiazid [Triamterene-HCTZ 37.5-25 MG] 25 - 37.5 mg PO DAILY 04/03/17 [History] Acetaminophen [Tylenol] 650 mg PO Q4H PRN tablet 04/06/17 [Rx] Azithromycin [Zithromax] 250 mg PO DAILY #5 tablet 04/06/17 [Rx] Docusate Sodium [Colace] 100 mg PO BID PRN #40 cap 04/06/17 [Rx] Levofloxacin [Levaquin] 750 mg PO DAILY #7 tablet 04/06/17 [Rx] Levothyroxine 150 mcg PO ACBREAKFAST #30 tablet 04/06/17 [Rx] guaiFENesin [Mucinex] 1,200 mg PO BID #40 tab.er 04/06/17 [Rx] methylPREDNISolone [Medrol] 4 mg PO DAILY #1 tab.ds.pk 04/06/17 [Rx] Patient Handouts: Shortness of Breath, [id number], Chronic Obstructive Pulmonary Disease, [id number], Community-Acquired Pneumonia, Adult, Easy-to- Read Forms: ED Department Discharge Referrals: Delfina Mya NP [Primary Care Provider] - - Discharge Summary/Plan Comment DC Time >30 min.: Yes (40 min) - General Info Date of Service: 04/06/17 Admission Dx/Problem (Free Text: Admission Diagnosis/Problem Admission Diagnosis/Problem Pneumonia Sandra is seen this morning, resting comfortably. Supplemental oxygen weaned, maintaining saturations on RA. Feeling significantly better and anxious for DC home today. VSS. Afebrile. Functional Status: Reports: Pain Controlled, Tolerating Diet, Ambulating, Urinating, Incentive Spirometry. Denies: New Symptoms - Review of Systems General: Reports: No Symptoms. Denies: Fever HEENT: Reports: No Symptoms Pulmonary: Reports: Shortness of Breath (improved), Cough (improved). Denies: Sputum, Wheezing Cardiovascular: Reports: No Symptoms, Dyspnea on Exertion (improved to resolved) Gastrointestinal: Reports: No Symptoms Genitourinary: Reports: No Symptoms Musculoskeletal: Reports: No Symptoms Skin: Reports: No Symptoms Neurological: Reports: No Symptoms Psychiatric: Reports: No Symptoms - Patient Data Vitals - Most Recent: Last Vital Signs Temp 97.7 F 04/06/17 08:13 Pulse 76 04/06/17 08:13 Resp 14 04/06/17 08:13 BP 104/62 04/06/17 08:13 Pulse Ox 92 L 04/06/17 08:17 Weight - Most Recent: 67.222 kg I&O - Last 24 hours: Intake & Output 04/05/17 04/06/17 04/06/17 22:59 06:59 14:59 Intake Total 630 800 Output Total 600 1000 Balance 30 -200 Lab Results - Last 24 hrs: Laboratory Results - last 24 hr 04/06/17 04/06/17 Range/Units 07:10 07:10 WBC 16.61 H (3.98-10.04) K/mm3 RBC 4.75 (3.98-5.22) M/mm3 Hgb 14.5 (11.2-15.7) gm/L Hct 44.3 (34.1-44.9) % MCV 93.3 (79.4-94.8) fl MCH 30.5 (25.6-32.2) pg MCHC 32.7 (32.2-35.5) g/dl RDW Std Deviation 48.0 H (36.4-46.3) fL Plt Count 429 H (182-369) K/mm3 MPV 10.2 (9.4-12.3) fl Neut % (Auto) 77.6 H (34.0-71.1) % Lymph % (Auto) 12.3 L (19.3-51.7) % Turner % (Auto) 9.2 (4.7-12.5) % Eos % (Auto) 0.1 L (0.7-5.8) Baso % (Auto) 0.1 (0.1-1.2) % Neut # (Auto) 12.90 H (1.56-6.13) K/mm3 Lymph # (Auto) 2.04 (1.18-3.74) K/mm3 Turner # (Auto) 1.52 H (0.24-0.36) K/mm3 Eos # (Auto) 0.01 L (0.04-0.36) K/mm3 Baso # (Auto) 0.02 (0.01-0.08) K/mm3 Manual Slide Review Normal smear Sodium 141 (136-145) mEq/L Potassium 3.7 (3.5-5.1) mEq/L Chloride 101 (98-107) mEq/L Carbon Dioxide 31 (21-32) mEq/L Anion Gap 12.7 (5-15) BUN 16 (7-18) mg/dL Creatinine 0.7 (0.55-1.02) mg/dL Est Cr Clr Drug Dosing 61.86 mL/min Estimated GFR (MDRD) > 60 (>60) mL/min BUN/Creatinine Ratio 22.9 H (14-18) Glucose 106 (80-115) mg/dL Calcium 9.4 (8.5-10.1) mg/dL C-Reactive Protein 3.0 H* (<1.0) mg/dL LINDA Results - Last 24 hrs: Microbiology 04/04/17 20:35 Gram Stain - Final Sputum - Expectorated Sputum Culture - Preliminary Med Orders - Current: Current Medications Acetaminophen (Tylenol) 650 mg PO Q4H PRN PRN Reason: Pain (Mild 1-3)/fever Last Admin: 04/04/17 20:39 Dose: 650 mg Albuterol/Ipratropium (Duoneb 3.0-0.5 Mg/3 Ml) 3 ml NEB Q4H PRN PRN Reason: Shortness Of Breath/wheezing Benzocaine/Menthol (Cepacol Sore Throat) 1 lozenge MUCMEM Q2H PRN PRN Reason: Sore Throat Docusate Sodium (Colace) 100 mg PO BID PRN PRN Reason: Constipation Last Admin: 04/05/17 11:16 Dose: 100 mg Enoxaparin Sodium (Lovenox) 40 mg SUBCUT DAILY [facility] Last Admin: 04/06/17 08:24 Dose: 40 mg Famotidine (Pepcid) 20 mg PO BID [facility] Last Admin: 04/06/17 08:24 Dose: 20 mg Guaifenesin (Mucinex) 1,200 mg PO BID [facility] Last Admin: 04/06/17 08:24 Dose: 1,200 mg Levofloxacin/Dextrose 750 mg/ (Premix) 150 mls @ 100 mls/hr IV Q24H [facility] Last Admin: 04/05/17 17:13 Dose: 100 mls/hr Azithromycin 500 mg/ Sodium (Chloride) 250 mls @ 250 mls/hr IV Q24H [facility] Last Admin: 04/05/17 11:14 Dose: 250 mls/hr Levothyroxine Sodium (Levothyroxine) 150 mcg PO ACBREAKFAST [facility] Last Admin: 04/06/17 06:34 Dose: 150 mcg Magnesium Hydroxide (Milk Of Magnesia) 30 ml PO BID PRN PRN Reason: Constipation Methylprednisolone Sodium Succinate (Solu-Medrol) 40 mg IVPUSH Q12H [facility] Last Admin: 04/06/17 06:34 Dose: 40 mg Mometasone Furoate (Asmanex Hfa 100mcg) 0 gm INH BID [facility] Last Admin: 04/06/17 08:16 Dose: 1 puff Ondansetron HCl (Zofran Odt) 4 mg PO Q6H PRN PRN Reason: nausea, able to take PO Ondansetron HCl (Zofran) 4 mg IV Q6H PRN PRN Reason: Nausea/Vomiting Polyethylene Glycol (Miralax) 17 gm PO DAILY PRN PRN Reason: Constipation Saccharomyces Boulardii (Florastor) 250 mg PO BID [facility] Last Admin: 04/06/17 08:24 Dose: 250 mg Sodium Chloride (Saline Flush) 10 ml FLUSH ASDIRECTED PRN PRN Reason: Keep Vein Open Last Admin: 04/03/17 14:57 Dose: 10 ml Temazepam (Restoril) 7.5 mg PO BEDTIME PRN PRN Reason: Sleep Last Admin: 04/05/17 20:20 Dose: 7.5 mg Triamterene/HCTZ (Dyazide 25-37.5 Mg) 1 each PO DAILY [facility] Last Admin: 04/06/17 08:24 Dose: 1 each Discontinued Medications Albuterol/Ipratropium (Duoneb 3.0-0.5 Mg/3 Ml) 3 ml NEB ONETIME ONE Stop: 04/03/17 13:37 Last Admin: 04/03/17 14:14 Dose: 3 ml Levofloxacin/Dextrose 750 mg/ (Premix) 150 mls @ 100 mls/hr IV ONETIME ONE Stop: 04/03/17 17:02 Last Admin: 04/03/17 16:22 Dose: 100 mls/hr Influenza Virus Vaccine (Fluzone High-Dose ) 180 mcg IM ONETIME ONE Stop: 04/04/17 11:01 Levothyroxine Sodium (Levothyroxine) 125 mcg PO ACBRK [facility] Last Admin: 04/05/17 06:10 Dose: 125 mcg Levothyroxine Sodium (Levothyroxine) 150 mcg PO ACBREAKFAST [facility] Last Admin: 04/05/17 07:57 Dose: Not Given Methylprednisolone Sodium Succinate (Solu-Medrol) 125 mg IVPUSH ONETIME ONE Stop: 04/03/17 15:52 Last Admin: 04/03/17 16:21 Dose: 125 mg Non-Formulary Medication (Fluticasone/Vilanterol) 1 each IH DAILY [place] - Exam Quality Assessment: Reports: DVT Prophylaxis. Denies: Supplemental Oxygen General: Reports: Alert, Oriented, Cooperative, No Acute Distress HEENT: Reports: Pupils Equal, EOMI, Mucous Membr. Moist/[place] Neck: Reports: Supple Lungs: Reports: Normal Respiratory Effort, Decreased Breath Sounds (but improved from yesterday), Wheezing (minimal, scattered on exp). Denies: Crackles, Rhonchi Cardiovascular: Reports: Regular Rate, Regular Rhythm GI/Abdominal Exam: Normal Bowel Sounds, Soft, Non-Tender (Female) Exam: Deferred Rectal (Female) Exam: Deferred Back Exam: Reports: Normal Inspection Extremities: Normal Inspection, No Pedal Edema, Normal Capillary Refill Neurological: Reports: No New Focal Deficit Psy/Mental Status: Reports: Alert, Normal Affect, Normal Mood *Q Meaningful Use (DIS) - VTE *Q VTE Criteria *Q: - Stroke *Q Stroke Criteria *Q: - AMI *Q AMI Criteria *Q: <Priya Dimasfer M - Last Filed: 04/07/17 14:39> Discharge Summary - Hospital Course Free Text/Narrative:: See above for OP ATBs, follow up as above. - Patient Data Vitals - Most Recent: Last Vital Signs Temp 36.5 C 04/06/17 08:13 Pulse 76 04/06/17 08:13 Resp 14 04/06/17 08:13 BP 104/62 04/06/17 08:13 Pulse Ox 92 L 04/06/17 08:17 LINDA Results - Last 24 hrs: Microbiology 04/04/17 20:35 Gram Stain - Final Sputum - Expectorated Sputum Culture - Final Normal Jeannine 04/04/17 22:11 Streptococcus pneumoniae Antigen (M - Final Urine Med Orders - Current: Current Medications Discontinued Medications Acetaminophen (Tylenol) 650 mg PO Q4H PRN PRN Reason: Pain (Mild 1-3)/fever Last Admin: 04/04/17 20:39 Dose: 650 mg Albuterol/Ipratropium (Duoneb 3.0-0.5 Mg/3 Ml) 3 ml NEB ONETIME ONE Stop: 04/03/17 13:37 Last Admin: 04/03/17 14:14 Dose: 3 ml Albuterol/Ipratropium (Duoneb 3.0-0.5 Mg/3 Ml) 3 ml NEB Q4H PRN PRN Reason: Shortness Of Breath/wheezing Benzocaine/Menthol (Cepacol Sore Throat) 1 lozenge MUCMEM Q2H PRN PRN Reason: Sore Throat Last Admin: 04/06/17 08:59 Dose: 1 lozenge Docusate Sodium (Colace) 100 mg PO BID PRN PRN Reason: Constipation Last Admin: 04/05/17 11:16 Dose: 100 mg Enoxaparin Sodium (Lovenox) 40 mg SUBCUT DAILY [facility] Last Admin: 04/06/17 08:24 Dose: 40 mg Famotidine (Pepcid) 20 mg PO BID [facility] Last Admin: 04/06/17 08:24 Dose: 20 mg Guaifenesin (Mucinex) 1,200 mg PO BID [facility] Last Admin: 04/06/17 08:24 Dose: 1,200 mg Levofloxacin/Dextrose 750 mg/ (Premix) 150 mls @ 100 mls/hr IV ONETIME ONE Stop: 04/03/17 17:02 Last Admin: 04/03/17 16:22 Dose: 100 mls/hr Levofloxacin/Dextrose 750 mg/ (Premix) 150 mls @ 100 mls/hr IV Q24H [facility] Last Admin: 04/05/17 17:13 Dose: 100 mls/hr Azithromycin 500 mg/ Sodium (Chloride) 250 mls @ 250 mls/hr IV Q24H [facility] Last Admin: 04/05/17 11:14 Dose: 250 mls/hr Influenza Virus Vaccine (Fluzone High-Dose ) 180 mcg IM ONETIME ONE Stop: 04/04/17 11:01 Influenza Virus Vaccine (Fluzone High-Dose ) 180 mcg IM ONETIME ONE Stop: 04/06/17 09:31 Last Admin: 04/06/17 09:42 Dose: 180 mcg Levothyroxine Sodium (Levothyroxine) 125 mcg PO ACBRK [facility] Last Admin: 04/05/17 06:10 Dose: 125 mcg Levothyroxine Sodium (Levothyroxine) 150 mcg PO ACBREAKFAST [facility] Last Admin: 04/05/17 07:57 Dose: Not Given Levothyroxine Sodium (Levothyroxine) 150 mcg PO ACBREAKFAST [facility] Last Admin: 04/06/17 06:34 Dose: 150 mcg Magnesium Hydroxide (Milk Of Magnesia) 30 ml PO BID PRN PRN Reason: Constipation Methylprednisolone Sodium Succinate (Solu-Medrol) 125 mg IVPUSH ONETIME ONE Stop: 04/03/17 15:52 Last Admin: 04/03/17 16:21 Dose: 125 mg Methylprednisolone Sodium Succinate (Solu-Medrol) 40 mg IVPUSH Q12H [facility] Last Admin: 04/06/17 06:34 Dose: 40 mg Mometasone Furoate (Asmanex Hfa 100mcg) 0 gm INH BID [facility] Last Admin: 04/06/17 08:16 Dose: 1 puff Non-Formulary Medication (Fluticasone/Vilanterol) 1 each IH DAILY [facility] Ondansetron HCl (Zofran Odt) 4 mg PO Q6H PRN PRN Reason: nausea, able to take PO Ondansetron HCl (Zofran) 4 mg IV Q6H PRN PRN Reason: Nausea/Vomiting Polyethylene Glycol (Miralax) 17 gm PO DAILY PRN PRN Reason: Constipation Saccharomyces Boulardii (Florastor) 250 mg PO BID [facility] Last Admin: 04/06/17 08:24 Dose: 250 mg Sodium Chloride (Saline Flush) 10 ml FLUSH ASDIRECTED PRN PRN Reason: Keep Vein Open Last Admin: 04/03/17 14:57 Dose: 10 ml Temazepam (Restoril) 7.5 mg PO BEDTIME PRN PRN Reason: Sleep Last Admin: 04/05/17 20:20 Dose: 7.5 mg Triamterene/HCTZ (Dyazide 25-37.5 Mg) 1 each PO DAILY [facility] Last Admin: 04/06/17 08:24 Dose: 1 each *Q Meaningful Use (DIS) - VTE *Q VTE Criteria *Q: - Stroke *Q Stroke Criteria *Q: - AMI *Q AMI Criteria *Q:
[2017-04-06] MEDS ORDERED: FLU Vacc TS 2017-18 (65yr UP)/PF 180 MCG/0.5 ML Syringe IM ONE (09:30)
== END 2017-04-06 10:23 | disposition home or self-care (01) | DRG 190 ==
LOC: JD.ED 12:55 → JD.MS 16:59 → OBSVTOIN 04-04 11:08 → JD.MS 04-04 12:30
PROVIDERS: ADMIT Hospitalist; ATTEND Hospitalist
DX: J44.0 Chronic obstructive pulmonary disease with (acute) lower respiratory infection (principal); J15.7 Pneumonia due to Mycoplasma pneumoniae; J96.21 Acute and chronic respiratory failure with hypoxia; J44.1 Chronic obstructive pulmonary disease with (acute) exacerbation; Z87.891 Personal history of nicotine dependence; I10 Essential (primary) hypertension; E03.9 Hypothyroidism, unspecified; Z88.0 Allergy status to penicillin; Z88.5 Allergy status to narcotic agent; Z79.899 Other long term (current) drug therapy; Z23 Encounter for immunization
CPT/HCPCS: 71020; 96365; 94640; 99285; 96375; 85025 ×2; 81001; 36415 ×2; 80053; 80048; 86140; 84443; 86738; 87804 ×2; 87040 ×2; J1650; A9270 ×2; J1956; J2930; J2920; J7050; 87070; 87205; 87899; 90662; 94664; 94760; 94761; 96366; 96372; 96376; G0008; G0378; J0456

== ENCOUNTER 2021-02-27 14:44 | Emergency (ER) | payer MEDICARE, BC ==
[2021-02-27 15:14] VITALS: BP 132/78
--- NOTE | 2021-02-27 15:40 | EDM.PDOC ---
ED HPI GENERAL MEDICAL PROBLEM - General Chief Complaint: Respiratory Problem Stated Complaint: LOW OXYGEN LEVEL Time Seen by Provider: 02/27/21 15:40 Source of Information: Reports: Patient History Limitations: Reports: No Limitations - History of Present Illness INITIAL COMMENTS - FREE TEXT/NARRATIVE: 75-year-old female presents to the ED for evaluation of COVID-19 illness. She was diagnosed COVID-19 positive on February 17. She was ill for about 3 days before getting tested. She has a sense of suffocation and that she is not getting adequate air. She continues to cough but is not expectorating any phlegm. No fevers for the last 3 to 4 days. She did have diarrhea that lasted for 2 days but is now better. Appetite remains poor but she is forcing herself to eat. She still feels very weak and fatigued. O2 sats on the monitor are 97 to 98% with mild tachypnea. She can desaturate down to 88% with walking. She did have the Pfizer vaccine back in July. 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 Patient is currently on a steroid taper and is on 20 mg a day and will be weaning down to 50 mg tomorrow for 2 days then 10 mg for 2 days etc. Onset: Gradual Onset Date: 02/17/21 (Patient is post her 10 days since diagnosis.) Duration: Day(s):, Other (On exertion. O2 sats are 98% at rest.) Location: Reports: Chest (Of suffocation and likely not getting a full adequate breath.) Quality: Reports: Other (Fatigue and sense of inadequate respirations) Severity: Moderate Improves with: Reports: Rest Worsens with: Reports: Movement (Desaturates down to 88% apparently walking around her house.) Context: Reports: Other. Denies: Activity, Exercise, Lifting, Sick Contact, Trauma Associated Symptoms: Reports: Cough, Fever/Chills, Loss of Appetite (Potassium remains about half normal. She is lost 10 pounds of weight over the last 2 weeks.), Malaise (Harsh paroxysmal cough rarely productive of any sputum.), Nausea/Vomiting, Shortness of Breath (Subjective dyspnea even at rest), Weakness. 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: Other (see below) (Take Motrin or acetaminophen for for 5 days.) - Related Data Allergies Allergy/AdvReac Type Severity Reaction Status Date / Time codeine Allergy Rash Verified 02/27/21 15:14 Penicillins Allergy Rash Verified 02/27/21 15:14 Home Meds: Home Meds Albuterol [IMW: Albuterol HFA] 1 inhalation PO Q4H PRN 12/12/15 [History] Albuterol/Ipratropium [DuoNeb 3.0-0.5 MG/3 ML] 3 ml NEB Q4HRRT PRN #100 neb 12/12/15 [Rx] Fluticasone Furoate [Arnuity Ellipta] 1 puff PO DAILY 04/03/17 [History] Triamterene/Hydrochlorothiazid [Triamterene-HCTZ 37.5-25 MG] 25 - 37.5 mg PO DAILY 04/03/17 [History] Acetaminophen [Tylenol] 650 mg PO Q4H PRN tablet 04/06/17 [Rx] Azithromycin [Zithromax] 250 mg PO DAILY #5 tablet 04/06/17 [Rx] Docusate Sodium [Colace] 100 mg PO BID PRN #40 cap 04/06/17 [Rx] Levothyroxine 150 mcg PO ACBREAKFAST #30 tablet 04/06/17 [Rx] guaiFENesin [Mucinex] 1,200 mg PO BID #40 tab.er 04/06/17 [Rx] levoFLOXacin [Levaquin] 750 mg PO DAILY #7 tablet 04/06/17 [Rx] methylPREDNISolone [Medrol] 4 mg PO DAILY #1 tab.ds.pk 04/06/17 [Rx] Past Medical History HEENT History: Reports: Cataract, Impaired Vision, Retinal Detachment Other HEENT History: wears eyeglasses. Cardiovascular History: Reports: High Cholesterol, Hypertension Respiratory History: Reports: COPD (On home oxygen at 2 L/min at all times), Pneumonia, Recurrent Genitourinary History: Reports: Pyelonephritis, UTI, Recurrent [employer] TR[employer] History: Reports: Musculoskeletal History: Reports: Fracture Endocrine/Metabolic History: Reports: Hypothyroidism Hematologic History: Reports: Anemia Other Hematologic History: in childhood - Infectious Disease History Infectious Disease History: Reports: Chicken Pox, Measles, Mumps, Novel Coronavirus, Shingles - Past Surgical History HEENT Surgical History: Reports: Cataract Surgery GI Surgical History: Reports: Appendectomy, Cholecystectomy, Colonoscopy Musculoskeletal Surgical History: Reports: Shoulder Surgery Social & Family History - Family History Family Medical History: No Pertinent Family History - Tobacco Use Tobacco Use Status *Q: Former Tobacco User Used Tobacco, but Quit: Yes Month/Year Tobacco Last Used: Aug 2007 - Caffeine Use Caffeine Use: Reports: Coffee Other Caffeine Use: 2 cups of coffee and 1 diet coke - Recreational Drug Use Recreational Drug Use: No - Living Situation & Occupation Living situation: Reports: Single Occupation: Employed ED ROS GENERAL - Review of Systems Review Of Systems: See Below Constitutional: Reports: Malaise, Weakness, Fatigue, Decreased Appetite, Weight Loss (Patient lost 10 pounds of weight over the last 2 weeks due to). Denies: Fever, Chills, Night Sweats (Gradually getting better.), Diaphoresis HEENT: Reports: Glasses Respiratory: Reports: Shortness of Breath (Subjective dyspnea even though her O2 sats are 97 to 98% at), Cough, Sputum. Denies: Wheezing ( rest.), Pleuritic Chest Pain, Hemoptysis (Rare sputum production) Cardiovascular: Reports: Chest Pain (Central chest discomfort from coughing.), Blood Pressure Problem, Dyspnea on Exertion. Denies: Claudication, Edema, Lightheadedness, Orthopnea Endocrine: Reports: Fatigue GI/Abdominal: Reports: Diarrhea (No diarrhea for the last 6 days.), Decreased Appetite, Nausea. Denies: Vomiting : Reports: No Symptoms Musculoskeletal: Reports: Neck Pain, Shoulder Pain, Back Pain Skin: Reports: No Symptoms Neurological: Reports: Dizziness, Weakness. Denies: Confusion, Headache, Numbness (Occasional dizziness), Pre-Existing Deficit, Syncope, Tingling, Trouble Speaking, Difficulty Walking Psychiatric: Reports: No Symptoms Hematologic/Lymphatic: Reports: No Symptoms Immunologic: Reports: No Symptoms ED EXAM, GENERAL - Physical Exam Exam: See Below Exam Limited By: No Limitations General Appearance: Alert, WD/WN, Anxious, Mild Distress, Other (Temperature is 36.2 degrees. Heart rate 76 and sinus respiratory is 18 BP is 1 3278 with pulse ox of 99% room air.) Eye Exam: Bilateral Eye: Normal Inspection (Mild blepharal pallor. No scleral icterus), PERRL Ears: Normal TMs Throat/Mouth: Normal Inspection, Normal Lips, Normal Oropharynx Head: Atraumatic, Normocephalic Neck: Normal Inspection, Supple, Non-Tender, Full Range of Motion, Tender Lateral. No: Lymphadenopathy (L), Lymphadenopathy (R) Respiratory/Chest: Decreased Breath Sounds (Uttered rhonchi throughout the left lung field. Creased air into the lower 15% lung nelson bilaterally.), Rhonchi. No: Lungs Clear, Normal Breath Sounds, Rales Cardiovascular: Normal Peripheral Pulses, Regular Rate, Rhythm, No Edema, No Gallop, No Murmur, No Rub Peripheral Pulses: 2+: Carotid (L), Carotid (R), Posterior Tibial (L), Posterior Tibial (R), Dorsalis Pedis (L), Dorsalis Pedis (R) GI/Abdominal: Normal Bowel Sounds, Soft, Non-Tender, No Organomegaly, No Distention Back Exam: Normal Inspection, Full Range of Motion. No: CVA Tenderness (L), CVA Tenderness (R) Extremities: Normal Inspection, Normal Range of Motion, Non-Tender, No Pedal Edema, Other Neurological: Alert, Oriented, CN II-XII Intact, Normal Cognition Psychiatric: Normal Affect, Normal Mood Skin Exam: Warm, Dry, Intact, Normal Color, No Rash #1 Interpretation EKG Date: 02/27/21 Time: 16:04 Rhythm: NSR Rate (Beats/Min): 64 [place]: LAD-Left [place] Deviation (-50 degrees) P-Wave: Present (P waves are present but very difficult to identify with a borderline first-degree AV block) QRS: Other (Q waves leads V1 and V2 compared with old anteroseptal myocardial infarction. There is a nonspecific intraventricular conduction delay) ST-T: Other (Diffuse repolarization abnormality most notable in the precordial leads and T wave flattening in aVL.) QT: Prolonged (Mildly prolonged.) Course - Vital Signs Last Recorded V/S: Last Vital Signs Temp 36.2 C 02/27/21 15:00 Pulse 65 02/27/21 20:15 Resp 18 02/27/21 20:15 BP 132/78 02/27/21 15:00 Pulse Ox 95 02/27/21 20:15 - Orders/Labs/Meds Labs: Laboratory Tests 02/27/21 02/27/21 02/27/21 Range/Units 16:20 16:20 16:20 WBC 5.83 (3.98-10.04) K/mm3 RBC 4.85 (3.98-5.22) M/mm3 Hgb 14.7 (11.2-15.7) gm/dl Hct 44.4 (34.1-44.9) % MCV 91.5 (79.4-94.8) fl MCH 30.3 (25.6-32.2) pg MCHC 33.1 (32.2-35.5) g/dl RDW Std Deviation 46.4 H (36.4-46.3) fL Plt Count 327 D (182-369) K/mm3 MPV 10.4 (9.4-12.3) fl Neut % (Auto) 70.4 (34.0-71.1) % Lymph % (Auto) 11.3 L (19.3-51.7) % Charles % (Auto) 17.2 H (4.7-12.5) % Eos % (Auto) 0 L (0.7-5.8) Baso % (Auto) 0.2 (0.1-1.2) % Neut # (Auto) 4.11 (1.56-6.13) K/mm3 Lymph # (Auto) 0.66 L (1.18-3.74) K/mm3 Charles # (Auto) 1.00 H (0.24-0.36) K/mm3 Eos # (Auto) 0.00 L (0.04-0.36) K/mm3 Baso # (Auto) 0.01 (0.01-0.08) K/mm3 D-Dimer, Quantitative (0.19-0.50) mg/L Sodium 137 (136-145) mEq/L Potassium 3.3 L (3.5-5.1) mEq/L Chloride 96 L (98-107) mEq/L Carbon Dioxide 32 (21-32) mEq/L Anion Gap 12.3 (5-15) BUN 13 (7-18) mg/dL Creatinine 0.7 (0.55-1.02) mg/dL Est Cr Clr Drug Dosing 58.33 mL/min Estimated GFR (MDRD) > 60 (>60) mL/min BUN/Creatinine Ratio 18.6 H (14-18) Glucose 115 H (70-99) mg/dL Calcium 9.4 (8.5-10.1) mg/dL Magnesium 2.2 (1.8-2.4) mg/dL Total Bilirubin 0.4 (0.2-1.0) mg/dL AST 33 (15-37) U/L ALT 42 (14-59) U/L Alkaline Phosphatase 58 (46-116) U/L Troponin I < 0.017 (0.00-0.056) ng/mL C-Reactive Protein 3.4 H* (<1.0) mg/dL NT-Pro-B Natriuret Pep 154 H (0-125) pg/mL Total Protein 7.5 (6.4-8.2) g/dl Albumin 2.9 L (3.4-5.0) g/dl Globulin 4.6 gm/dL Albumin/Globulin Ratio 0.6 L (1-2) 02/27/21 Range/Units 16:20 WBC (3.98-10.04) K/mm3 RBC (3.98-5.22) M/mm3 Hgb (11.2-15.7) gm/dl Hct (34.1-44.9) % MCV (79.4-94.8) fl MCH (25.6-32.2) pg MCHC (32.2-35.5) g/dl RDW Std Deviation (36.4-46.3) fL Plt Count (182-369) K/mm3 MPV (9.4-12.3) fl Neut % (Auto) (34.0-71.1) % Lymph % (Auto) (19.3-51.7) % Charles % (Auto) (4.7-12.5) % Eos % (Auto) (0.7-5.8) Baso % (Auto) (0.1-1.2) % Neut # (Auto) (1.56-6.13) K/mm3 Lymph # (Auto) (1.18-3.74) K/mm3 Charles # (Auto) (0.24-0.36) K/mm3 Eos # (Auto) (0.04-0.36) K/mm3 Baso # (Auto) (0.01-0.08) K/mm3 D-Dimer, Quantitative 0.37 (0.19-0.50) mg/L Sodium (136-145) mEq/L Potassium (3.5-5.1) mEq/L Chloride (98-107) mEq/L Carbon Dioxide (21-32) mEq/L Anion Gap (5-15) BUN (7-18) mg/dL Creatinine (0.55-1.02) mg/dL Est Cr Clr Drug Dosing mL/min Estimated GFR (MDRD) (>60) mL/min BUN/Creatinine Ratio (14-18) Glucose (70-99) mg/dL Calcium (8.5-10.1) mg/dL Magnesium (1.8-2.4) mg/dL Total Bilirubin (0.2-1.0) mg/dL AST (15-37) U/L ALT (14-59) U/L Alkaline Phosphatase (46-116) U/L Troponin I (0.00-0.056) ng/mL C-Reactive Protein (<1.0) mg/dL NT-Pro-B Natriuret Pep (0-125) pg/mL Total Protein (6.4-8.2) g/dl Albumin (3.4-5.0) g/dl Globulin gm/dL Albumin/Globulin Ratio (1-2) Meds: Medications Discontinued Medications Generic Name Dose Route Start Last Admin Trade Name Freq PRN Reason Stop Dose Admin Dextrose/Sodium Chloride 1,000 mls @ 150 mls/hr 02/27/21 15:45 02/27/21 16:13 Dextrose 5%-Normal Saline IV 150 mls/hr ASDIRECTED [place] Administration - Radiology Interpretation Free Text/Narrative:: 75-year-old female presents to the ED for evaluation of COVID-19 symptoms that seem to be lingering. Patient was diagnosed with COVID-19 positivity on February 17. She believes she was ill for about 3 days before getting tested. She has had the Pfizer vaccine back in July x2 doses. She presents because of feeling of dyspnea. Feels she cannot get a full deep breath. Of note O2 sats are 96 to 98% on room air but she does desaturate to 88% with walking around the room. She still has congestion in her left lung on clinical examination. Plan IV D5 normal saline 150 mils an hour. A chest x-ray is to be done 1 view [facility] labs to rule out myocarditis and congestive failure and PE. - Re-Assessments/Exams Free Text/Narrative Re-Assessment/Exam: 02/27/21 16:51 chest x-ray reveals slightly hyperinflated lung nelson. Cardiac silhouette is normal and mediastinum is normal. There is prominence along both pulmonary arteries and infiltrates into the lower lobes bilaterally compatible with COVID-19 pneumonia. The lungs do show a COPD appearance. 02/27/21 18:42 White count is 5.83. The differential shows 70.4% neutrophils on the auto differential. Hemoglobin is 14.7 with a hematocrit of 44.4. Platelet counts 327,000. D-dimer is 0.37. Sodium 137 with a potassium of 3.3. Chloride is 96 with a bicarb of 32 and an anion gap of 12.3. BUN is 13 with a creatinine of 0.7 and a GFR greater than 60. BUN/creatinine ratio was 18.6. Glucose is 115.. Calcium is 9.4. Magnesium is 2.2. Liver function is normal troponin I is less than 0.017. C-reactive protein is 3.4 BNP is 154 total protein 7.5 02/27/21 19:44 be discharged at this time. She is on home oxygen at 2 L/min at all times. No changes made to medications. She is on a steroid tapering dose provided by Dr. Byers. Not sure of the exact dosage that she is using at present. She was reassured that current illness is simply due to COVID-19 illness exacerbating her COPD and she will be fatigued for a good 4 to 6 weeks before she recovers. She will return if condition deteriorates any further. Departure - Departure Time of Disposition: 19:45 Disposition: Home, Self-Care 01 Condition: Fair Clinical Impression: COVID-19 determined by clinical diagnostic criteria, Viral pneumonia COPD (chronic obstructive pulmonary disease) Qualifiers: COPD type: emphysema Emphysema type: unspecified Qualified Code(s): J43.9 - Emphysema, unspecified - Discharge Information *PRESCRIPTION DRUG MONITORING PROGRAM REVIEWED*: Not Applicable *COPY OF PRESCRIPTION DRUG MONITORING REPORT IN PATIENT AGA: Not Applicable Instructions: Chronic Obstructive Pulmonary Disease Exacerbation, [id number], COVID-19 Frequently Asked Questions, Shortness of Breath, Adult, [id number] Referrals: Silvia Byers MD [Primary Care Provider] - Forms: ED Department Discharge Additional Instructions: Evaluation in the emergency room today in regards to increased shortness of breath since cleo COVID-19 illness last , February 17. You are almost through the worst part of the illness. Most people are the most ill between day 8 and 11 of COVID-19 illness. It is exacerbated your COPD and chest x-ray does reveal mild bilateral viral pneumonia in the lower lobes but it is considered mild. No other signs of infection were identified. No blood clots identified within the lungs. No evidence of damage or injury to the heart or exacerbation of heart failure. Your oxygen level stayed at 96 to 98% at rest but certainly do go down or desaturate on minimal exertion. Continue oxygen at 2 L/min per normal for your COPD. Unfortunately it will be another month before you probably feel back to normal in terms of exercise tolerance, return of full appetite and improved energy levels. Continue your prednisone taper as Dr. Byers has prescribed. At this time no other medications are required. Follow-up with Dr. Byers or return to the ED if you have any further problems occur. Sepsis Event Note (ED) - Evaluation Sepsis Screening Result: No Definite Risk
[2021-02-27] MEDS ORDERED: Iopamidol 755 Mg/ML 100 ML Bottle IVPUSH ONE (15:42)
[2021-02-27] MEDS ORDERED: Sodium Chloride 0.9% 100 ML IV ONE (15:42)
[2021-02-27] MEDS ORDERED: Sodium Chloride 0.9% 10 ML Syringe FLUSH PRN (15:42)
[2021-02-27] MEDS ORDERED: Dextrose 5%-0.9% NaCl 1,000 ML IV SCH (15:45)
[2021-02-27 20:38] VITALS: PULSE 65
--- NOTE | 2021-02-28 16:05 | CR ---
Chest: Frontal view of the chest was obtained. Comparison: Prior chest x-ray of 04/05/17. Heart size and mediastinum are within normal limits. Slight density is seen within the left lung base. Lungs otherwise are unchanged from previous exam. Slight scoliosis is noted within the spine with scattered degenerative change. Impression: 1. Mild increased density within the left lung base. Findings presumably are due to improving COVID pneumonia. 2. Other findings which are stable as noted above. Diagnostic code #2
== END 2021-02-27 20:30 | disposition home or self-care (01) ==
LOC: JD.ED 14:44 → SUPCPDRO 14:44 → JD.ED 20:30
DX: U07.1 COVID-19 (principal); J12.82 Pneumonia due to coronavirus disease 2019; J43.9 Emphysema, unspecified; I10 Essential (primary) hypertension; E03.9 Hypothyroidism, unspecified; Z87.891 Personal history of nicotine dependence; Z88.5 Allergy status to narcotic agent; Z88.0 Allergy status to penicillin; Z79.899 Other long term (current) drug therapy; R06.02 Shortness of breath
CPT/HCPCS: 36415; 71045; 80053; 83735; 83880; 84484; 85025; 85379; 86140; 93005; 99285; J7042; 93010; 99284

== ENCOUNTER 2023-03-01 23:46 | Emergency (ER) | payer MEDICARE, BC ==
[2023-03-02 00:44] LABS: BASOPHILS ABSOLUTE AUTO 0.1 K/mm3 (0.0-0.2); BASOPHILS PERCENT AUTO 0.9 % (0.0-1.0); EOSINOPHILS ABSOLUTE AUTO 0.1 K/mm3 (0.0-0.4); EOSINOPHILS PERCENT AUTO 1.4 % (0.0-6.0); HEMATOCRIT 41.5 % (37.0-47.0); HEMOGLOBIN 13.4 gm/dl (12.0-16.0); IMMATURE GRAN ABSOLUTE AUTO 0.11 K/mm3 (0.00-0.05); IMMATURE GRAN PERCENT AUTO 1.3 % (0.0-0.4); LYMPHOCYTES ABSOLUTE AUTO 1.7 K/mm3 (1.0-4.8); LYMPHOCYTES PERCENT AUTO 19.5 % (24.0-44.0); MEAN CORPUSCULAR HEMOGLOBIN 31.2 pg (28.0-32.0); MEAN CORPUSCULAR HGB CONC 32.3 g/dl (32.0-36.0); MEAN CORPUSCULAR VOLUME 96.5 fl (83.0-99.0); MEAN PLATELET VOLUME 10.4 fl (9.4-12.3); MONOCYTES PERCENT AUTO 11.6 % (0.0-8.0); NEUTROPHILS ABSOLUTE AUTO 5.6 K/mm3 (1.8-7.7); NEUTROPHILS PERCENT AUTO 65.3 % (41.0-71.0); PLATELET COUNT,PLT 265 K/mm3 (150-400); WHITE BLOOD CELL COUNT,WBC 8.57 K/mm3 (3.9-11.3)
[2023-03-02 01:14] LABS: A/G RATIO 0.8 (1-2); ALBUMIN 3.2 g/dl (3.4-5.0); ANION GAP 12.3 (5-15); BILIRUBIN TOTAL 0.2 mg/dL (0.2-1.0); BUN/CREATININE RATIO 22.5 (14-18); CALCIUM 9.4 mg/dL (8.5-10.1); CREATININE 0.8 mg/dL (0.55-1.02); EST CRCL DRUG DOSING (CG) 49.49 mL/min; POTASSIUM,K 4.3 mEq/L (3.5-5.1); PROTEIN TOTAL,TP 7.3 g/dl (6.4-8.2)
[2023-03-02 01:31] VITALS: BP 130/76; PULSE 83
== END 2023-03-02 01:25 | disposition home or self-care (01) ==
LOC: JD.ED 23:46
DX: R00.0 Tachycardia, unspecified (principal); E78.00 Pure hypercholesterolemia, unspecified; I10 Essential (primary) hypertension; E03.9 Hypothyroidism, unspecified; Z88.5 Allergy status to narcotic agent; Z88.0 Allergy status to penicillin; Z86.16 Personal history of COVID-19
CPT/HCPCS: 36415; 71045; 71045-26; 80053; 84484; 85025; 93005; 93010; 99284; 99285

== ENCOUNTER 2025-02-12 15:03 | Emergency (ER) | payer MEDICARE ==
[2025-02-12] MEDS ORDERED: Sodium Chloride 0.9% 10 ML Syringe FLUSH PRN (15:35)
[2025-02-12 15:58] LABS: BASOPHILS ABSOLUTE AUTO 0.0 K/mm3 (0.0-0.2); BASOPHILS PERCENT AUTO 0.2 % (0.0-1.0); EOSINOPHILS ABSOLUTE AUTO 0.0 K/mm3 (0.0-0.4); EOSINOPHILS PERCENT AUTO 0.0 % (0.0-6.0); IMMATURE GRAN ABSOLUTE AUTO 0.10 K/mm3 (0.00-0.05); IMMATURE GRAN PERCENT AUTO 0.6 % (0.0-0.4); LYMPHOCYTES ABSOLUTE AUTO 1.0 K/mm3 (1.0-4.8); LYMPHOCYTES PERCENT AUTO 6.3 % (24.0-44.0); MEAN PLATELET VOLUME 10.5 fl (9.4-12.3); MONOCYTES ABSOLUTE AUTO 1.8 K/mm3 (0.0-0.8); MONOCYTES PERCENT AUTO 10.8 % (0.0-8.0); NEUTROPHILS ABSOLUTE AUTO 13.3 K/mm3 (1.8-7.7); NEUTROPHILS PERCENT AUTO 82.1 % (41.0-71.0); NRBC ABSOLUTE 0.00 (0.00-0.02); NRBC PERCENT 0.0 % (0.0-0.2); PLATELET COUNT,PLT 306 K/mm3 (150-400); RED BLOOD CELL COUNT 4.88 M/mm3 (4.10-5.30); WHITE BLOOD CELL COUNT,WBC 16.15 K/mm3 (3.9-11.3)
[2025-02-12 16:23] LABS: A/G RATIO 0.8 (1-2); ALANINE AMINOTRANSFERASE,ALT 26.0 U/L (14-59); ASPARTATE AMNIOTRANSFERASE,AST 18.0 U/L (15-37); BILIRUBIN TOTAL 0.3 mg/dL (0.2-1.0); BLOOD UREA NITROGEN,BUN 14.0 mg/dL (7-18); CARBON DIOXIDE,CO2 30.0 mEq/L (21-32); CHLORIDE,CL 102.0 mEq/L (98-107); CREATININE 0.6 mg/dL (0.55-1.02); EST CRCL DRUG DOSING (CG) 61.12 mL/min; ESTIMATED GFR 92.0 mL/min (>60); GLUCOSE RANDOM 119.0 mg/dL (70-99); POTASSIUM,K 4.1 mEq/L (3.5-5.1); PROTEIN TOTAL,TP 7.7 g/dl (6.4-8.2); SODIUM,NA 140.0 mEq/L (136-145)
[2025-02-12 17:11] VITALS: BP 124/94; PULSE 78
== END 2025-02-12 17:12 | disposition home or self-care (01) ==
LOC: JD.ED 15:03
DX: J44.1 Chronic obstructive pulmonary disease with (acute) exacerbation (principal); J18.9 Pneumonia, unspecified organism; E78.00 Pure hypercholesterolemia, unspecified; I10 Essential (primary) hypertension; E03.9 Hypothyroidism, unspecified; Z88.5 Allergy status to narcotic agent; Z88.0 Allergy status to penicillin; Z79.899 Other long term (current) drug therapy; Z79.51 Long term (current) use of inhaled steroids; Z86.16 Personal history of COVID-19; Z90.49 Acquired absence of other specified parts of digestive tract; Z87.891 Personal history of nicotine dependence
CPT/HCPCS: 36415; 71046; 71046-26; 80053; 85025; 86140; 93005; 93010; 99284; 99285